=== PATIENT | female | born 1930 | race African-American/Black ===

== ENCOUNTER 2017-01-01 16:27 | Inpatient (IN) | payer MEDICARE, OTHER ==
--- NOTE | 2017-01-01 17:06 | EDPHY ---
H & P Time Seen by Provider: 01/01/17 16:53 HPI/ROS: CHIEF COMPLAINT: Fall times 2 HISTORY OF PRESENT ILLNESS: 86-year-old woman is brought in by her . He says that she was more unsteady today than usual and fell down at home at 9: 00 a.m.. Just before arrival she went into the grocery store and apparently EMS was called because she fell down again. The patient says she might have passed out but she really can't remember. Further history limited by the patient's poor memory, her is concerned she may be having some dementia. Further history and review of systems limited by the patient's poor memory. Per the no recent complaints of chest pain or shortness of breath. PAST MEDICAL HISTORY: COPD on home oxygen. Emergency department record from [facility] by Dr. Bernstein dated 12/25/2015 personally reviewed at 5: 19 p.m.. Includes hypertension, diverticulitis, hyperlipidemia, anxiety, chronic back pain, my kidney disease, osteoporosis, COPD, depression. She was seen at this visit for thoracic back pain and specifically had CT angiography of her chest and abdomen. This did not show any evidence of aortic dissection. Moderate emphysema. No intra-abdominal surgical process. Social history: Here with , denies alcohol. Ex smoker, Aguilar patient. General Appearance: Alert and conversant, cooperative. Eyes: No scleral icterus. ENT, Mouth: Normal mucous membranes. No tongue laceration or abrasion. Respiratory: Normal respiratory effort, breath sounds equal, lungs are clear to auscultation. Cardiovascular: Regular rate and rhythm. No murmur. Gastrointestinal: Abdomen is soft and non tender. Neurological: Alert, follows commands, knows it is 2016 and she is in the hospital but thinks it is November. Normally conversant. Face symmetric, normal movement and sensation in all extremities. Skin: Warm and dry, no rashes. Musculoskeletal: No peripheral edema and no joint swelling. No cervical thoracic or lumbar spine tenderness. Psychiatric: Not agitated. Emergency Department course/MDM: 1731: CT head per Isuani negative except for atrophy. 1800: Dr. Clint Aguilar ECM 1824: ECM discussed troponin 0.154, possible acute coronary syndrome, not stable for transfer, will admit to [facility]. Oral aspirin. Smoking Status: Former smoker Constitutional: Initial Vital Signs Temperature (C) 36.4 C 01/01/17 16:29 Heart Rate 78 01/01/17 16:29 Respiratory Rate 18 01/01/17 16:29 Blood Pressure 129/96 H 01/01/17 16:29 O2 Sat (%) 93 01/01/17 16:29 O2 Delivery Mode Nasal Cannula O2 (L/minute) 2 Allergies/Adverse Reactions: No Known Allergies Allergy (Unverified 01/01/17 16:36) Home Medications: Medication Instructions Recorded NK [No Known Home Meds] 01/01/17 Medical Decision Making - Diagnostics EKG Interpretation: 12-lead EKG interpreted by me; official reading is in trace master. My interpretation is sinus rhythm rate 68 with borderline right axis and LVH Imaging Results: Imaging Impressions Head CT 01/01/17 17:04 Impression: 1. Mild atrophy. 2. No acute hemorrhage, hydrocephalus, or mass effect. 3. Cerebrovascular atherosclerosis. 4. No definite acute infarct. 5. Moderate microvascular ischemic gliosis. 6. No skull fracture or epidural/subdural hematoma. Findings and recommendations discussed with Emergency Department physician, MALLORIE ROMERO at 17:30 hour, 01/01/2017. Final report concurs with initial preliminary interpretation. Differential Diagnosis: Differential diagnosis considered for syncope including but not limited to vasovagal syncope, arrhythmia, dehydration, and blood loss. Consult/Admit Bed Type: [place] [address] - Data Points Laboratory Results: Laboratory Results 01/01/17 17:00 01/01/17 17:00 01/01/17 01/01/17 17:00 17:00 WBC 11.03 10^3/uL H 10^3/uL (3.80-9.50) RBC 4.24 10^6/uL 10^6/uL (4.18-5.33) Hgb 15.3 g/dL g/dL (12.6-16.3) Hct 44.6 % % (38.0-47.0) MCV 105.2 fL H fL (81.5-99.8) MCH 36.1 pg H pg (27.9-34.1) MCHC 34.3 g/dL g/dL (32.4-36.7) RDW 12.8 % % (11.5-15.2) Plt Count 259 10^3/uL 10^3/uL (150-400) MPV 9.3 fL fL (8.7-11.7) Neut % (Auto) 68.4 % % (39.3-74.2) Lymph % (Auto) 21.9 % % (15.0-45.0) Rogers % (Auto) 5.4 % % (4.5-13.0) Eos % (Auto) 2.5 % % (0.6-7.6) Baso % (Auto) 0.5 % % (0.3-1.7) Nucleat RBC Rel Count 0.0 % % (0.0-0.2) Absolute Neuts (auto) 7.54 10^3/uL H 10^3/uL (1.70-6.50) Absolute Lymphs (auto) 2.42 10^3/uL 10^3/uL (1.00-3.00) Absolute Monos (auto) 0.60 10^3/uL 10^3/uL (0.30-0.80) Absolute Eos (auto) 0.28 10^3/uL 10^3/uL (0.03-0.40) Absolute Basos (auto) 0.05 10^3/uL 10^3/uL (0.02-0.10) Absolute Nucleated RBC 0.00 10^3/uL 10^3/uL (0-0.01) Immature Gran % 1.3 % H % (0.0-1.1) Immature Gran # 0.14 10^3/uL H 10^3/uL (0.00-0.10) Sodium 142 mEq/L mEq/L (134-144) Potassium 4.7 mEq/L mEq/L (3.5-5.2) Chloride 105 mEq/L mEq/L (97-110) Carbon Dioxide 27 mEq/l mEq/l (22-31) Anion Gap 10 mEq/L mEq/L (8-16) BUN 28 mg/dL H mg/dL (7-23) Creatinine 1.4 mg/dL H mg/dL (0.6-1.0) Estimated GFR 36 Glucose 94 mg/dL mg/dL (70-100) Calcium 12.2 mg/dL H mg/dL (8.5-10.4) Phosphorus 3.2 mg/dL mg/dL (2.5-4.5) Troponin I 0.154 ng/mL H ng/mL (0.000-0.034) Ethyl Alcohol < 10 mg/dL mg/dL (0-10) Medications Given: Discontinued Medications Aspirin (Aspirin) 324 mg PO EDNOW ONE Stop: 01/01/17 18:32 Last Admin: 01/01/17 18:51 Dose: 324 mg Departure - Departure Disposition: [facility] Inpatient Acute Clinical Impression: Troponin level elevated Syncope Qualifiers: Syncope type: unspecified Qualified Code(s): R55 - Syncope and collapse Condition: Good
[2017-01-01 17:12] LABS: % IMMATURE GRANULYOCYTES 1.3 % (0.0-1.1); ABSOLUTE IMMATURE GRANULOCYTES 0.14 10^3/uL (0.00-0.10); ADD DIFF? NO; ADD MORPH? NO; ADD SCAN? NO; ATYPICAL LYMPHOCYTE FLAG 10 (0-99); FRAGMENT RBC FLAG 0 (0-99); HEMATOCRIT 44.6 % (38.0-47.0); HEMOGLOBIN 15.3 g/dL (12.6-16.3); LEFT SHIFT FLG 10 (0-99); LIPEMIA HEMOLYSIS FLAG 90 (0-99); MEAN CELL HEMOGLOBIN 36.1 pg (27.9-34.1); MEAN CELL HEMOGLOBIN CONCENTR. 34.3 g/dL (32.4-36.7); MEAN CELL VOLUME 105.2 fL (81.5-99.8); MEAN PLATELET VOLUME 9.3 fL (8.7-11.7); PLATELET CLUMPS FLAG 0 (0-99); PLATELET COUNT 259 10^3/uL (150-400); RED BLOOD CELL COUNT 4.24 10^6/uL (4.18-5.33); RED CELL DISTRIBUTION WIDTH 12.8 % (11.5-15.2)
[2017-01-01 17:25] LABS: ANION GAP 10 mEq/L (8-16); CALCIUM 12.2 mg/dL (8.5-10.4); CARBON DIOXIDE 27 mEq/l (22-31); CHLORIDE 105 mEq/L (97-110); CREATININE 1.4 mg/dL (0.6-1.0); GLOMERULAR FILTRATION RATE 36; GLUCOSE 94 mg/dL (70-100); POTASSIUM 4.7 mEq/L (3.5-5.2); SODIUM 142 mEq/L (134-144)
--- NOTE | 2017-01-01 17:36 | CPEKG ---
Heart Rate: 68 RR Interval: 882 P-R Interval: 188 QRSD Interval: 86 QT Interval: 408 QTC Interval: 434 P Concord: 85 QRS Concord: 82 T Wave Concord: 74 EKG Severity - ABNORMAL ECG - EKG Impression: SINUS RHYTHM EKG Impression: BORDERLINE RIGHT AXIS DEVIATION EKG Impression: CONSIDER LEFT VENTRICULAR HYPERTROPHY Electronically Signed By: Donald Gonzalez 01-Jan-2017 17:36:52
[2017-01-01 17:40] LABS: ETHANOL SERUM < 10 mg/dL (0-10)
[2017-01-01 18:14] LABS: TROPONIN I 0.154 ng/mL (0.000-0.034)
[2017-01-01] MEDS ORDERED: ASPIRIN 81 MG CHEWABLE TAB PO ONE (18:31)
[2017-01-01] MEDS ORDERED: ONDANSETRON 4 MG/2 ML VIAL IVP PRN (19:24)
[2017-01-01] MEDS ORDERED: ONDANSETRON DISINTEGRATING 4 MG TAB PO PRN (19:24)
--- NOTE | 2017-01-01 19:28 | CPEKG ---
Heart Rate: 78 RR Interval: 769 P-R Interval: 192 QRSD Interval: 84 QT Interval: 388 QTC Interval: 442 P Needham: 71 QRS Needham: 65 T Wave Needham: 76 EKG Severity - BORDERLINE ECG - EKG Impression: SINUS RHYTHM EKG Impression: PROBABLE LEFT ATRIAL ABNORMALITY Electronically Signed By: Donald Gonzalez 01-Jan-2017 21:40:33
--- NOTE | 2017-01-01 20:55 | GHP ---
[f rep st] HISTORY AND PHYSICAL DATE OF ADMISSION: 01/01/2017 Patient is an 86-year-old female with a history of hypertension, vascular disease, who presents with syncope. When I speak with the patient she is somewhat confused and she tells me she just collapsed. It sounds like she had an episode of syncope this morning at 9 a.m. She then told her she marizol sethi to go to the grocery store. They discussed that for a moment. Ultimately they went. He was marizol aiting outside and suddenly an ambulance came because she collapsed in there. When I speak with the patient, she has been in the ER for a couple hours. She denies chest pain. Carole gonzalez says she collapsed. She denies palpitations. She has no history of bradyarrhythmia of which she i s aware. She has not been seen in this hospital in 7 years. I do have an ER discharge report from [facility] about a year ago that showed that she had an ulcerated plaque in the thoracic aorta, wa s on a number of medications including amlodipine, atenolol and losartan as well as a statin. The patient denies alcohol use. In discussion with Dr. Donald Gonzalez, our emergency department doctor, wiliam gonzalez said her expressed some concern that she had dementia. REVIEW OF SYSTEMS: Complete review of systems conducted and negative as noted in the HPI. PAST MEDICAL HISTORY: 1. Ulcerated thoracic aortic ulcer. 2. Atherosclerosis. 3. Hypertension. 4. Diverticulitis. 5. Hyperlipidemia. 6. Restless legs. 7. Chronic low back pain. 8. History of tobacco use. 9. Thyroid nodule, simple cyst. 10. Liver cyst. 11. Pulmonary nodule. 12. Gastric ulcer. 13. Constipation. 14. Hypertensive chronic kidney disease. GFR 30-60. 15. Primary hyperparathyroidism. 16. History of lithotripsy. 17. Osteoporosis. 18. COPD. 19. Spinal stenosis. 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 HOME MEDICATIONS: Here are listed as none but previously as of just 1 year ago, her medication list included Tylenol, amlodipine, atenolol, vitamin D3, vitamin B12, hydrocodone, losartan, nortriptyline , fish oil, omeprazole, pravastatin. ALLERGIES: Listed here aspirin and NSAIDs. SOCIAL HISTORY: Lives with her in [place]. Quit smoking she says in 2002. Last year was [employer] as a current smoker. Denies alcohol. FAMILY HISTORY: Parents . PHYSICAL EXAMINATION: VITAL SIGNS: Temp 36.4, blood pressure /96, pulse 78, breathing 18 times a minute, 92% on room air. GENERAL: No acute distress. HEENT: Sclerae anicteric. Oropharynx clear. Mucous membranes are moist. NECK: Supple without lymphadenopathy or JVD. LUNGS: Clear to auscultation bilaterally. HEART: S1, S2 without systolic murmurs. ABDOMEN: Soft, nontender, nondi stended. LOWER EXTREMITIES: Without edema. Calves nontender. SKIN: Without rash. NEUROLOGIC: E xam is nonfocal. LABORATORY DATA: Sodium 142, potassium 4.7, chloride 105, bicarb 27, BUN 28, creatinine 1.4. Her BU N and creatinine were normal or at least at 1.0 seven years ago here. There are no reported labs fro m her ER visit that I can find 1 year ago. Glucose 94, calcium 12.2, phos 3.2, troponin 0.154. Alco hol level is unremarkable. White count 11, hematocrit 44. Her MCV is elevated at 105. Platelets ar e 259. Noncontrast head CT shows moderate ischemic gliosis, no acute mass effect, hemorrhage or hydrocephalu s. No definite acute infarct. No skull fracture. EKG interpreted by me, shows sinus at 60 with normal axis and intervals. No ST or T-wave changes. T here is about a 0.25 mm or 0.[address] elevation seen in L but there is no ST elevation in 1 or V5-V6. I have repeated an EKG, and it is essentially unchanged. I have discussed the case Dr. Donald Gonzalez. ASSESSMENT AND PLAN: This is an 86-year-old female, who presents with syncope and confusion. Syncope. She gives a story of syncope without prodrome which is, of course, concerning. She is hypov olemic by labs I assume but she also has a positive troponin. I do not think this represents vasovag al and is not clearly hypovolemic. We will cycle her troponins and follow her on telemetry. She bonds s not have a systolic murmur. PLAN: 1. Echocardiogram. 2. Telemetry. 3. Cycle troponins. We will hold off on heparinization at this point in time, but I do have the rep eat troponin pending. She is currently not having chest pain and does not have ischemic EKG changes. 4. Elevated creatinine. I suspect she has acute kidney injury. I will give her a L of IV fluids and repeat in the morning. 5. Hypercalcemia. She has a diagnosis of hyperparathyroidism. I will check an ionized calcium and r epeat in the morning. Certainly the 12.2 was enough to cause some confusion and even some dehydratio n. Will follow. Will also send a PTH in the morning as well. 6. Confusion. Certainly the patient is at risk for dementia given age. Also concerning is her poss ible hypercalcemia. Additionally, she has a macrocytosis concerning for possible alcohol use that e is not endorsing and/or B12 and folate deficiency. I will send a B12 and folate and follow. Will get a collateral history from her when he is available. 7. Confusion. Certainly this patient seems marginal to be living on her own in her current state. Will sort of follow what the workup does. I have had PT and OT and speech for a evaluatio n see her. 8. Macrocytosis, B12 and folate evaluation. 9. Acute kidney injury. I suspect this is acute, will follow. 10. Leukocytosis, moderate, mild, will follow. DISPOSITION: Observation status. /[id number]/MODL
[2017-01-01] MEDS: NS 1,000 ML IV SCH (21:06)
[2017-01-01 22:16] LABS: TROPONIN I 0.158 ng/mL (0.000-0.034)
[2017-01-02 04:36] LABS: % IMMATURE GRANULYOCYTES 0.1 % (0.0-1.1); ABSOLUTE IMMATURE GRANULOCYTES 0.01 10^3/uL (0.00-0.10); ADD DIFF? NO; ADD MORPH? NO; ADD SCAN? NO; ATYPICAL LYMPHOCYTE FLAG 0 (0-99); FRAGMENT RBC FLAG 0 (0-99); HEMATOCRIT 42.3 % (38.0-47.0); HEMOGLOBIN 13.6 g/dL (12.6-16.3); LEFT SHIFT FLG 0 (0-99); LIPEMIA HEMOLYSIS FLAG 80 (0-99); MEAN CELL HEMOGLOBIN 33.9 pg (27.9-34.1); MEAN CELL HEMOGLOBIN CONCENTR. 32.2 g/dL (32.4-36.7); MEAN CELL VOLUME 105.5 fL (81.5-99.8); MEAN PLATELET VOLUME 9.4 fL (8.7-11.7); PLATELET CLUMPS FLAG 0 (0-99); PLATELET COUNT 243 10^3/uL (150-400); RED BLOOD CELL COUNT 4.01 10^6/uL (4.18-5.33)
[2017-01-02 05:02] LABS: ANION GAP 12 mEq/L (8-16); CALCIUM 11.2 mg/dL (8.5-10.4); CARBON DIOXIDE 26 mEq/l (22-31); CHLORIDE 105 mEq/L (97-110); CREATININE 1.3 mg/dL (0.6-1.0); GLOMERULAR FILTRATION RATE 39; GLUCOSE 78 mg/dL (70-100); POTASSIUM 4.3 mEq/L (3.5-5.2); SODIUM 143 mEq/L (134-144)
[2017-01-02 05:11] LABS: PTH INTACT NO MINERALS 237.7 pg/ml (10.8-79.4); TROPONIN I 0.105 ng/mL (0.000-0.034)
[2017-01-02] MEDS: NS 1,000 ML IV SCH (05:26)
--- NOTE | 2017-01-02 08:37 | ECHO ---
[email or web address] [address] [address] Main: [phone] Fax: [email or web address] Echocardiogram Name: HERMES LOUIE MR#: [id number] Study Date: 01/02/2017 Study Time: 07:10 AM Date of : 1930 Age: 86 year(s) Height: 160 cm (63 in.) Weight: 46.72 kg (103 lb.) BSA: 1.46 m2 Gender: Female Examination: Echo Indication: syncope/increased troponin/known vascular disease, history smoker Image Quality: Contrast: Requested by: Shaji Lujan BP: 144 mmHg/63 mmHg Heart Rate: Rhythm: Indication: syncope/increased troponin/known vascular disease, history smoker Procedure Staff [employer] Tool Driller: Michelle Martinez Reading Physician: Patricia Bryan Requesting Provider: Conclusions: Normal size left ventricle. Moderate concentric LV hypertrophy. Normal global systolic LV function. The ejection fraction is estimated to be 70-75 %. No regional wall motion abnormality. Grade 1 diastolic dysfunction (abnormal relaxation). Normal size right ventricle. Normal RV function. Mild mitral valve regurgitation is present. No aortic valve stenosis is present. Mild tricuspid regurgitation is present. The pulmonary artery pressure is severely increased. RVSP is 68-72mmHG.. There is no previous echocardiogram for comparison. Measurements: Chambers Valvular Assessment AV/MV Valvular Assessment TV/PV Normal Normal Normal Name Value Range Name Value Range Name Value Range Ao Nita (MM): 3.3 cm (2.2 cm-3.7 AV Vmax: 1.26 m/s (1 m/s-1.7 TR Vmax: 3.99 mm/s ( - ) cm) m/s) TR PGmax: 64 mmHg ( - ) IVSd (2D): 1.0 cm (0.6 cm-1.1 AV maxP mmHg ( - ) syst. PAP: 74 mmHg ( - ) cm) MV E Vmax: 0.60 m/s ( - ) LVDd (2D): 4.4 cm (3.9 cm-5.3 MV A Vmax: 0.98 m/s ( - ) cm) MV E/A: 0.61 ( - ) LVDs (2D): 2.6 cm (2.1 cm-4 cm) LVPWd (2D): 1.1 cm ( - ) LVEF (MOD4): 79 % (>=55 %) Patient: HERMES LOUIE Study Date: 01/02/2017 Page 1 of 2 07:10 AM EF Range: 70-75 % Continued Measurements: Chambers Valvular Assessment AV/MV Valvular Assessment TV/PV Name Value Name Value Name Value LADs: 3.6 cm MV DecTime: 327 m/s CVP (est.): 10 mmHg LADs Lon.8 cm MV E/E' Septal: 13.60 LA Area: 13.6 cm2 MV E/E' Lateral: 10.40 Findings: Left Ventricle: Normal size left ventricle. Moderate concentric LV hypertrophy. Normal global systolic LV function. The ejection fraction is estimated to be 70-75 %. No regional wall motion abnormality. Grade 1 diastolic dysfunction (abnormal relaxation). Right Ventricle: Normal size right ventricle. Normal RV function. Left Atrium: The left atrium is normal in size. 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 Right Atrium: The right atrium is normal in size. Mitral Valve: Mild mitral annular calcification. Mild mitral valve regurgitation is present. Aortic Valve: No aortic valve stenosis is present. Moderately calcified NCC of the aortic valve.. Tricuspid Valve: Mild tricuspid regurgitation is present. The pulmonary artery pressure is severely increased. RVSP is 68-72mmHG.. Pulmonic Valve: The pulmonic valve is normal in appearance and function. Aorta: The aorta is normal. Pericardium: No pericardial effusion. (No Signature Object) Patient: HERMES LOUIE Study Date: 01/02/2017 Page 2 of 2 07:10 AM [id number]
[2017-01-02] MEDS: ASPIRIN 81 MG CHEWABLE TAB PO SCH (08:48)
--- NOTE | 2017-01-02 10:41 | ASMTCMCOM ---
CM Note CM Note Notes: 01/02/2017 Case Management Note Met w/ pt. Pt signed HAYS form. Case management awaiting PT and OT and HOSPICE NURSE PRACTITIONER evals for recommendations for d/c. Case Mangement d/c poc: To be determined. Date Signed: 01/02/2017 10:41 AM Electronically Signed By:Little Lorenzana RN
--- NOTE | 2017-01-02 11:26 | HOSPPROG ---
Hospitalist Progress Note Assessment/Plan: First encounter Medically complex 86 yo female admitted with syncope while at the grocery store while pushing her cart. She recognized that she was going to faint but "could not do anything about it". Per report, there was +LOC. Upon further questioning she reports several similar falls in the last few week. However, she is a very poor historian and appears confused. Unclear what her cognitive baseline is. She denies any CP or SOB or palpiations or leg swelling. There have not been any events on Telemetry. An Echocardiogram is pending. HR has been in 60-90's. BP stable, slightly elevated She has known Hyperparathyroidism and was noted to have hypercalcemia She was also noted to have elevated Cr and likely acute kidney injury and started with IVF Calcium has improved slightly and Cr remains essentially the same. #Syncope, etiology unclear, suspicious for cardiac etiology -will consult Cards -Await TTE -No events noted on tele thus far #Encephalopathy, unclear chronicity #LORENA and dehydration #Hypercalcemia (11.2) and known Primary Hyperparathyroidism (PTH 237) #HTN #generalized weakness and deconditioning #Macrocytosis: normal B12 and Folate Plan: -Card consult -await TTE -It is unclear how much her calcium elevation is contributing to her weakness, encephalopathy, renal dysfunction, dehydration, and possibly HTN and syncope. She is a very poor historian and I will attempt to review other records and discuss with her family. She likely would benefit from a parathyroidectomy -She appears Euvolemic currently, will stop IVF -Check urine studies -Lovenox for DVT proph -Dispo: change to inpatient Subjective: very poor historian. No CP or SOB. No N/V. Objective: Vital Signs Temp Pulse Resp BP Pulse Ox 36.9 C 94 19 171/96 H 90 L 01/02/17 07:34 01/02/17 07:34 01/02/17 07:34 01/02/17 07:34 01/02/17 07:34 Laboratory Results 01/02/17 03:54 01/02/17 03:54 01/01/17 01/02/17 01/03/17 05:59 05:59 05:59 Intake Total 1100 Balance 1100 - Physical Exam Constitutional: not in pain, chronically ill appearing Eyes: PERRL, EOMI Ears, Nose, Mouth, Throat: moist mucous membranes, hearing normal Cardiovascular: regular rate and rhythym, No edema Respiratory: no respiratory distress, clear to auscultation Gastrointestinal: normoactive bowel sounds Genitourinary: no bladder fullness Skin: warm Musculoskeletal: full muscle strength Psychiatric: encephalopathic, poor insight, poor judgement, poor memory, No thought process linear ICD10 Worksheet Patient Problems: Problems Problem Status Onset Syncope Acute Troponin level elevated Acute
--- NOTE | 2017-01-02 12:09 | PDMN ---
Medical Necessity Medical necessity: C/M review: Patient meets INPT criteria under MCG Syncope and Systemic of infectious condition GRG (Hypercalcemia); Acute syncope of unclear etiology- suspiscious for cardiac etiology, troponins 0.154, 0.158, 0, 105, acute and persistent encephalopathy of unclear etiology, acute kidney injury, BUN 28, 26, Cr 1.4, 1.3, dehydration, not patient euvolemic, acute and persistent hypercalcemia Ca 12.2, 11.2, generalized weakness and deconditionibng requiring IV fluids, planned Cardiology consult, echocardiogram , ongoing cardiac monitoring, discontinue IV fluids, acute inpt PT/OT, comorbid hypertension, macrocytosis, known hyperparathyroidism, PTH 237. anticipates > 2 MN LOS for ongoing med nec for eval and TX of above. Patient is Medicare Advantage which follows guidelines CMS puts forth.
--- NOTE | 2017-01-02 12:33 | SOAPPROG ---
[facility] Progress Note Assessment/Plan: Assessment: Cardiology consultation performed and dictated. 86 y/o woman with dementia, HTN, moderate to severe pulmonary HTN admitted with syncope. Reportedly thoracic aortic ulcer on CT at [facility] a year ago. Pt is very poor history but denies pain anywhere in body. So far telemetry is unremarkable. REC: 1)start Amlodipine 5mg PO qday. 2)CTA heart and thoracic aorta today to evaluate for ulcerating thoracic aorta 3)Lexiscan cardiolite in AM 4)continue Tele Thanks. Will follow with you. 01/02/17 12:31 Objective: Vital Signs Temp Pulse Resp BP Pulse Ox 36.9 C 94 19 177/79 H 90 L 01/02/17 07:34 01/02/17 07:34 01/02/17 07:34 01/02/17 11:24 01/02/17 07:34 ICD10 Worksheet Patient Problems: Problems Problem Status Onset Syncope Acute Troponin level elevated Acute
[2017-01-02] MEDS ORDERED: IOPAMIDOL (ISOVUE 370) 100 ML BTL IV ONE (12:57)
--- NOTE | 2017-01-02 13:23 | GCON ---
[f rep st] CONSULTATION CARDIOLOGY CONSULT DATE OF CONSULTATION: 01/02/2017 REASON FOR CONSULTATION: Evaluate woman with syncope and reportedly loss of consciousness. HISTORY OF PRESENT ILLNESS: The patient is a very poor historian with probably dementia, unable to g boris a reliable history. From reviewing her records, she is an 86-year-old woman wit h a history of hypertension, chronic renal insufficiency, primary hyperparathyroidism, depression wit h psychosis, spinal stenosis, and possible CAT scan showing an ulcerated plaque in her thoracic aorta a year ago. She reportedly was at a grocery store with her when she lost consciousness. Cu rrently, she reports she has not had any pain in her body, but otherwise cannot really give much of a reliable history. She is alert, and oriented only to person. An echo done yesterday afternoon demo nstrates an LVEF of 73%, with moderate concentric left ventricular hypertrophy and diastolic dysfunct ion, with normal right ventricular function. She has mild mitral and tricuspid insufficiency, with a n estimated pulmonary artery systolic pressure of 70 mmHg, consistent with moderate to severe pulmona ry hypertension. PAST MEDICAL HISTORY: Hypertension, ulcerated plaque in her thoracic aorta, chronic renal insufficie ncy with a creatinine 1.3, previous gastric ulcers, hyperparathyroidism with elevated serum calcium, spinal stenosis, and depression with psychosis. PAST SURGICAL HISTORY: Unknown. CURRENT MEDICATIONS: Aspirin and Lovenox. Reportedly, she was on amlodipine, losartan, atenolol, an d pravastatin in the past. ALLERGIES: No known drug allergies. SOCIAL HISTORY: Reportedly she is and lives in [place] with her . She cannot tell me if she smokes or drinks. FAMILY HISTORY: Unknown secondary to poor historian. REVIEW OF SYSTEMS: Patient is unable to give an accurate review of systems, because of her dementia. PHYSICAL EXAM: VITAL SIGNS: Afebrile, pulse 90 and regular, blood pressure 177/79, respirations 20, 90% on room air. Weight 46.7 kg. GENERAL: A tangential, slightly confused woman, in no acute dist ress, without chest pain or using excess respiratory muscles. EYES: Pupils equal and reactive to li ght. ENT: Oral mucosa with no cyanosis. Jugular venous pressure to 6 cm. Carotid pulses 2+ bilate rally. No thyromegaly noted. LUNGS: Poor respiratory effort. No obvious wheezes or rales. HEART: Normal PMI. Regular rate and rhythm with 1/6 nonradiating systolic murmur. ABDOMINAL: Soft, nont qian. No guarding or rebound. EXTREMITIES: 2+ peripheral pulses, including femoral and pedal puls es. No edema noted. MUSCULOSKELETAL: No scoliosis. NEUROLOGIC: Alert, only to person. The patie nt does not know where she is at or the year. NECK: No nuchal rigidity. SKIN: No bleeding or cyan osis. EKG: Normal sinus rhythm with left atrial enlargement. No acute ST elevation or depression. LABS: White count 8.8, hematocrit 42, platelets 243,000, MCV 106. Sodium 143, potassium 4.3, chlori de 105, bicarb 26, BUN 26, creatinine 1.3, calcium 11.2. Troponin 0.16. NT-proBNP level 174. IMPRESSION: An 86-year-old woman with multiple medical problems including hypertension and moderate to severe pulmonary hypertension, and dementia. Clinically, I think her syncopal episode was seconda ry to hypovolemia. However, need to exclude underlying coronary artery disease and thoracic aortic a neurysm or ulcerating plaque. RECOMMENDATIONS: 1. Would start on amlodipine 5 mg per day. 2. Would do a CTA of the heart and thoracic aorta with IV contrast today, to make sure she has no th oracic aortic aneurysm or severe penetrating ulcer. 3. Would do a Lexiscan Cardiolite stress test in the morning. 4. Would continue on telemetry to make sure she has no tachy or justus arrhythmias. Thank you for allowing me to participate in the care of the patient. Cardiology will follow along wi th you during her hospitalization. /[id number]/MODL
[2017-01-02] MEDS: amLODIPine BESYLATE 5 MG TAB PO SCH (13:30)
[2017-01-02] MEDS: ENOXAPARIN 30 MG/0.3 ML SYR SC SCH (13:30)
[2017-01-03] MEDS: ACETAMINOPHEN 325 MG TAB PO PRN ×2 (08:38→17:01)
[2017-01-03] MEDS: amLODIPine BESYLATE 5 MG TAB PO SCH (08:39)
[2017-01-03] MEDS: ENOXAPARIN 30 MG/0.3 ML SYR SC SCH (08:39)
[2017-01-03] MEDS: ASPIRIN 81 MG CHEWABLE TAB PO SCH (08:39)
--- NOTE | 2017-01-03 09:00 | SOAPPROG ---
SOAP Progress Note Assessment/Plan: Assessment: 86 y/o woman with dementia, HTN, moderate to severe pulmonary HTN admitted with syncope. CTA chest shows small 7.5mm descending thoracic aortic ulcer but no aneuryseum. BP still not controlled. No arrhythmias on tele. PLAN: 1)increase Amlodipine to 10mg PO qam. 2)start Atorvastatin 20mg PO qam. 3)lexiscan cardiolite today. 4)If BP under tighter control and no ischemia on cardiolite, could go home from cardiology standpoint tomorrow. 01/03/17 08:57 Subjective: sore left hip but otherwise no complaints. Denies ARAGON, CP, ELKINS, palpitations or dizziness. Objective: Vital Signs Temp Pulse Resp BP Pulse Ox 36.7 C 81 16 175/108 H 99 01/03/17 07:43 01/03/17 07:43 01/03/17 07:43 01/03/17 07:43 01/03/17 07:43 01/02/17 01/03/17 01/04/17 05:59 05:59 05:59 Intake Total 490 Output Total 850 Balance -360 Physical Exam - Physical Exam General Appearance: no apparent distress EENT: normal ENT inspection Neck: full range of motion Respiratory: lungs clear (but poor respiratory effort.) Cardiac/Chest: regular rate, rhythm, systolic murmur, No gallop, No JVD Peripheral Pulses: 2+: carotid (R), carotid (L), femoral (R), femoral (L), dorsalis-pedis (R), dorsalis-pedis (L) Abdomen: non-tender, No guarding Skin: warm/dry Extremities: No pedal edema Neuro/Psych: No oriented x 3 ICD10 Worksheet Patient Problems: Problems Problem Status Onset Syncope Acute Troponin level elevated Acute
[2017-01-03] MEDS: ATORVASTATIN CALCIUM 20 MG TAB PO SCH (09:11)
[2017-01-03] MEDS ORDERED: REGADENOSON 0.4 MG/5 ML SYR IVP ONE (09:29)
--- NOTE | 2017-01-03 10:29 | HOSPPROG ---
Hospitalist Progress Note Assessment/Plan: Medically complex 86 yo female admitted with syncope while at the grocery store while pushing her cart. She recognized that she was going to faint but "could not do anything about it". Per report, there was +LOC. Upon further questioning she reports several similar falls in the last few week. However, she is a very poor historian and appears confused. Unclear what her cognitive baseline is. She denies any CP or SOB or palpiations or leg swelling. There have not been any events on Telemetry. An Echocardiogram is pending. HR has been in 60-90's. BP stable, slightly elevated. Cards is following. She is getting a nuclear stress test today. Etiology is possibly volume deficit vs other including cardiac disease. She has known Hyperparathyroidism and was noted to have hypercalcemia. It is unclear to what extent hypercalcemia is contributing to her symptoms including hypovolemia, renal injury, weakness, encephalopathy, and possibly Cardiac She was also noted to have elevated Cr and likely acute kidney injury and started with IVF with little improvement. Hydration status is clinically better. FENA is c/w 1.3, intrinsic TTE: Mod-Sever pulm HTN. Preserved LVEF. Diastolic dysfunction #Syncope, etiology unclear -will consult Cards -No events noted on tele thus far #Encephalopathy, unclear chronicity. ?Dementia #LORENA vs Chronic renal failure. No improvement on IVF. Intrinsic #Hypercalcemia (11.2) and known Primary Hyperparathyroidism (PTH 237). #HTN: Amlopine 10mg daily (increased today) #generalized weakness and deconditioning #Macrocytosis: normal B12 and Folate Plan: -Stress test today -Meeting with the pt's to discuss goals of care today -Pending discussion with her , she may benefit from a parathyroidectomy -Lovenox for DVT proph -Dispo: change to inpatient Subjective: Needing a sitter at bedside. Confused. Reports pain. No CP or SOB. Will have stress test today Objective: Vital Signs Temp Pulse Resp BP Pulse Ox 36.7 C 81 16 175/108 H 99 01/03/17 07:43 01/03/17 07:43 01/03/17 07:43 01/03/17 07:43 01/03/17 07:43 01/02/17 01/03/17 01/04/17 05:59 05:59 05:59 Intake Total 490 Output Total 850 350 Balance -360 -350 - Physical Exam Constitutional: chronically ill appearing Eyes: PERRL Ears, Nose, Mouth, Throat: moist mucous membranes, hearing normal Cardiovascular: regular rate and rhythym, No edema Respiratory: no respiratory distress, no rales or rhonchi, clear to auscultation Gastrointestinal: normoactive bowel sounds, soft, non-tender abdomen Skin: warm Neurologic: AAOx3 Psychiatric: poor insight, poor judgement, poor memory ICD10 Worksheet Patient Problems: Problems Problem Status Onset Syncope Acute Troponin level elevated Acute
--- NOTE | 2017-01-03 11:12 | GCON ---
[f rep st] CONSULTATION DATE OF CONSULTATION: 01/03/2017 REFERRING PHYSICIAN: Kasandra Lane MD The patient is seen at the request of Dr. Lane with the patient's permission. IMPRESSION: 1. 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 2. Multiple comorbidities. Please see admitting history and physical. RECOMMENDATIONS: This patient could be felt serially for progression of her penetrating aortic ulcer . At the present time, I can elicit no symptoms and have no prior studies for comparison. Apparentl y, the patient has ongoing cigarette abuse and dementia, and for that reason I would not offer interv ention as far as thoracic endograft. She could have serial observation with CAT scans, but again if her dementia is advanced, I see no indication that would warrant more aggressive intervention. Obvio usly, cessation of smoking would be helpful. I will convey this to the family when available. CHIEF COMPLAINT: An 86-year-old female with a history of hypertension and vascular disease, who pres ented with syncope. HISTORY OF PRESENT ILLNESS: She carries a history of some sort of atherosclerotic changes in her aor ta, and I was asked to comment about her penetrating aortic ulcer in the mid descending thoracic aort a. I reviewed a CT. There is an ulcerated plaque with classic penetrating aortic ulcer, without penetra tion of the adventitia, to my review. These tend to be of chronic nature and slow developing. In he althier subjects, we would consider thoracic endograft. However, given this patient's dementia and a dvanced age, it would be difficult to make this recommendation. PHYSICAL EXAMINATION: GENERAL: This is a slender female who is quite confused and quite anxious, repeatedly asking where she is, with a sitter at the bedside. HEART: Rate was regula r. LUNGS: Clear. ABDOMEN: Soft, nontender. Bowel sounds are active. EXTREMITIES: Pedal pulses were absent. No edema. No varicosities. IMAGING: CT scan was reviewed. /[id number]/MODL
--- NOTE | 2017-01-03 11:39 | ASMTCMCOM ---
CM Note CM Note Notes: 01/03/2017 Case Management Note Spoke w/ Kana on the phone. PT and OT recommending SNF rehab. Per Kana, pt has prior stay at [facility] in [place]. Faxed referral to [facility] and [facility] at Kana's request. Shreya is insurance and will limit where placement is possible. Kana indicated there is family in [place], [place] and [place] but no one local. Kana has help with lawn care and shoveling but otherwise pt and Kana have no other supports. Discussed placement in memory care unit with Kana. He stated they had looked at [facility] in the past but were unable to afford monthly fees. Discussed applying for Medicaid and submitting a ULTC 100 rd for group home placement in a SNF. [employer] to assess for Medicaid application on Wednesday. Case Management d/c poc: To SNF upon acceptance when medically stable. Case Management to follow. Date Signed: 01/03/2017 11:39 AM Electronically Signed By:Little Lorenzana RN
[2017-01-03] MEDS: traMADol 50 MG TAB PO PRN (12:48)
--- NOTE | 2017-01-03 14:45 | ASMTCMCOM ---
CM Note CM Note Notes: 01/03/2017 Case Management Note Met w/pt, Kana and MD. [facility] declined pt because the [facility] is not in network with [facility]. Kana agreed to need for Palliative meeting to discuss goals of care. Kana asked that daughter Roseanne be teleconferenced into palliative meeting. She can be reached at [phone]. Spoke w/Roseanne on the phone at Kana's request. Discussed need for memory care unit after SNF. Roseanne is concerned about parent's ability to safely care for themselves. Encouraged Roseanne to discuss with Kana the need for Medical POA and financial POA to be designated. Kana indicates that pt is in charge of bill paying for the household. Roseanne may fly out to [place] pending outcome of Palliative meeting. Brother Kaleb lives in [place]. Roseanne agreed to contact Kaleb and see if he wanted to participate in palliative meeting. Roseanne lives in [place] and requested that Palliative meeting happen after 2 pm her time (12 pm local time). Case Management to follow. Date Signed: 01/03/2017 02:45 PM Electronically Signed By:Little Lorenzana RN
--- NOTE | 2017-01-03 19:20 | NEUROPROG ---
Assessment: [id number] CC: Syncope, cognitive decline HPI: Pt seen on 01/03/17. Elderly female with PMHx of HTN, vascular disease, CKD, possible dementia presents with unexplained syncope x 2 and 3-4 months of cognitive decline. Pt is a poor historian and all information gained from review of medical record that was based on her husbands report. Pt very tired now and sleeping and not at bedside (will be back tomorrow morning). A few weeks prior to admission it was reported the patient passed out at [employer] while shopping but no workup was performed. Pt apparently did well until 01/01/17 when pt reported she just collapsed on the morning of 01/01/17 at 9 am and then again in a grocery store. This prompted EMS to be called and bring patient to the hospital. Pt awoke quickly and no seizure was seen. Cardiology is evaluating patient for cause of syncope but a cause is not currently known. Neurology was consulted to exclude a neurologic cause of syncope and to evaluate her cognitive decline. PMHx: ulcerated thoracic aortic plaque, HTN, diverticulitis, HLD, RLS, chronic lower back pain, thyroid nodule, pulm nodule, liver cyst, gastric ulcer, CKD, hyperparathyroidism, osteoporosis, COPD, spinal stenosis, depression w/psychosis SHx: tobacco use FHx: parents ROS: Pt denied acute fever, total vision loss, active severe chest pain, respiratory failure, total body severe rash, total bowel/bladder incontinence, psychosis, active seizures, or active bleeding O: VS reviewed General: asleep Eyes: Fundoscopic exam not able to visualize optic disks CV: difficult to assess due to patient sleeping Lungs: difficult to assess due to patient sleeping Neuro: - Mental: Pt too tired to participate in meaningful mental status testing - Cranial Nerves: . II: cant be full assessed as pt sleeping . III/IV/: cant be full assessed as pt sleeping . V: cant be full assessed as pt sleeping . VII: no facial asymmetry seen but pt sleeping so difficult to assess . VIII: cant be full assessed as pt sleeping . IX/X: cant be full assessed as pt sleeping . XI: cant be full assessed as pt sleeping . XII: cant be full assessed as pt sleeping - Motor: . Tone: cant be full assessed as pt sleeping . Strength: no clear asymmetry seen but cant be full assessed as pt sleeping - Reflexes: cant be full assessed as pt sleeping - Sensory: cant be full assessed as pt sleeping - Coord: cant be full assessed as pt sleeping - Gait: deferred Labs: 01/02/17- CBC unremarkable, Chem BUN 26H Cr 1.3H Ca 11.2H, B12 >1,000 Rads: 01/01/17- Head CT: mild atrophy, no acute changes, mod CMVD (I personally visualized the images on 01/03/17) 01/02/17- TTE: EF 70-75%, no thrombi, no cardioembolic source seen 01/02/17- 24 hour Tele: no afib Assessment: 1. Unexplained syncope x 2, 3-4 months of cognitive decline: Pt sleeping at this time and not at bedside (primary historian) so limited exam and history. Will evaluate for possible stroke as cause of recurrent syncope and cognitive decline as well as obtain additional labs. Concern for underlying dementia at this time as well. Plan: - Brain MRI w/o con - Carotid U/S - Labs: Lipid, H1AC, TSH, RPR - Get better exam tomorrow morning when pt more fully awake and obtain additional history from (plans to be here in the morning) - Neurology will follow closely Objective: Vital Signs Temp Pulse Resp BP Pulse Ox 36.6 C 82 20 136/95 H 93 01/03/17 17:00 01/03/17 17:00 01/03/17 17:00 01/03/17 17:00 01/03/17 17:00 01/02/17 01/03/17 01/04/17 05:59 05:59 05:59 Intake Total 824 1160 Output Total 294 725 Balance -360 435 Allergies/Adverse Reactions: No Known Allergies Allergy (Unverified 01/01/17 16:36)
[2017-01-04] MEDS: traMADol 50 MG TAB PO PRN (08:10)
[2017-01-04 08:11] LABS: ALANINE AMINOTRANSFERASE 34 IU/L (9-52); ALBUMIN 3.9 g/dL (3.5-5.0); ALKALINE PHOSPHATASE 69 IU/L (38-126); ANION GAP 9 mEq/L (8-16); ASPARTATE AMINOTRANSFERASE 27 IU/L (14-46); BILIRUBIN,TOTAL 0.5 mg/dL (0.1-1.4); CALCIUM 11.2 mg/dL (8.5-10.4); CARBON DIOXIDE 29 mEq/l (22-31); CHLORIDE 105 mEq/L (97-110); CHOLESTEROL 144 mg/dL (140-220); CHOLESTEROL/HDL RATIO 2.88 RATIO (1.00-4.44); CREATININE 1.1 mg/dL (0.6-1.0); GLOMERULAR FILTRATION RATE 47; GLUCOSE 92 mg/dL (70-100); HIGH DENSITY LIPOPROTEIN 50 mg/dL (40-85); LDL/HDL RATIO 1.38 RATIO (1.00-3.22); LOW DENSITY LIPOPROTEIN 69 mg/dL (80-100); NON-HIGH DENSITY LIPOPROTEIN 94 mg/dL (90-129); POTASSIUM 4.6 mEq/L (3.5-5.2); SODIUM 143 mEq/L (134-144); TOTAL PROTEIN 6.6 g/dL (6.3-8.2); TRIGLYCERIDE 129 mg/dL (35-135); VERY LOW DENSITY LIPOPROTEINS 25 mg/dL (8-25)
[2017-01-04 08:19] LABS: PREALBUMIN 22.8 mg/dL (17.6-36.0)
[2017-01-04] MEDS: ACETAMINOPHEN 325 MG TAB PO PRN (08:30)
[2017-01-04] MEDS ORDERED: NON-FORMULARY NEW DRUG (Albuterol 2 PUFFS) IH PRN (09:04)
[2017-01-04] MEDS ORDERED: CLOBETASOL PROPIONATE TP PRN ×2 (09:04→09:12)
[2017-01-04] MEDS ORDERED: NICOTINE POLACRILEX 4 MG BC PRN ×2 (09:04→09:13)
[2017-01-04] MEDS ORDERED: ALBUTEROL 200 PUFFS/18 GM MDI IH PRN (09:12)
[2017-01-04] MEDS ORDERED: LOSARTAN POTASSIUM 50 MG PO SCH (09:15)
[2017-01-04] MEDS: ASPIRIN 81 MG CHEWABLE TAB PO SCH (09:35)
[2017-01-04] MEDS: CYANO/VITAMIN B12 1000 MCG TAB PO SCH (09:35)
[2017-01-04] MEDS: ATORVASTATIN CALCIUM 20 MG TAB PO SCH (09:35)
[2017-01-04] MEDS: ENOXAPARIN 30 MG/0.3 ML SYR SC SCH (09:36)
[2017-01-04] MEDS: LOSARTAN POTASSIUM 50 MG TAB PO SCH (09:36)
[2017-01-04 09:42] LABS: HEMOGLOBIN A1C 5.3 % (4.0-6.0)
--- NOTE | 2017-01-04 09:42 | NEUROPROG ---
Assessment: MRI brain and Carotid U/S results not available yet. WIll see pt tomorrow am when results available. Dr. Banerjee will see patient. Objective: Vital Signs Temp Pulse Resp BP Pulse Ox 36.5 C 83 16 145/83 H 99 01/04/17 08:00 01/04/17 08:00 01/04/17 08:00 01/04/17 08:00 01/04/17 08:00 Laboratory Results 01/04/17 07:31 01/03/17 01/04/17 01/05/17 05:59 05:59 05:59 Intake Total 490 1460 Output Total 850 725 Balance -360 735 Allergies/Adverse Reactions: No Known Allergies Allergy (Unverified 01/01/17 16:36)
[2017-01-04 10:04] LABS: % IMMATURE GRANULYOCYTES 0.2 % (0.0-1.1); ABSOLUTE IMMATURE GRANULOCYTES 0.02 10^3/uL (0.00-0.10); ADD DIFF? NO; ADD MORPH? NO; ADD SCAN? NO; ATYPICAL LYMPHOCYTE FLAG 10 (0-99); FRAGMENT RBC FLAG 0 (0-99); HEMOGLOBIN 15.4 g/dL (12.6-16.3); LEFT SHIFT FLG 0 (0-99); LIPEMIA HEMOLYSIS FLAG 80 (0-99); MEAN CELL HEMOGLOBIN 35.4 pg (27.9-34.1); MEAN CELL HEMOGLOBIN CONCENTR. 33.5 g/dL (32.4-36.7); MEAN CELL VOLUME 105.7 fL (81.5-99.8); MEAN PLATELET VOLUME 9.6 fL (8.7-11.7); PLATELET CLUMPS FLAG 20 (0-99); PLATELET COUNT 285 10^3/uL (150-400); RED BLOOD CELL COUNT 4.35 10^6/uL (4.18-5.33); RED CELL DISTRIBUTION WIDTH 13.2 % (11.5-15.2)
--- NOTE | 2017-01-04 15:16 | ASMTCMCOM ---
CM Note CM Note Notes: See Palliative Care note for details. Palliative Care met with pt, , and son Darshan and daughter Roseanne were both on the phone (calling in from separate locations). Apparently, patient demanded that daughter have no decision making power and appointed son Darshan as MDPOA. Darshan requested that a list of [facility] SNF be sent to him, as well as information regarding what length of stay [facility] would pay for. I did send the SNF list to him @ [email or web address] but said that I was not able to answer questions about insurance coverage. I did not hear back from him. Patient has already been accepted at [facility] - I mentioned this in my email to Darshan, as well. Current Case Management Discharge plan: SNF pending family decision making Date Signed: 01/04/2017 03:15 PM Electronically Signed By:Karla Arriaga RN
[2017-01-04] MEDS: PSYLLIUM METAMUCIL 1 PKT PO SCH ×2 (16:34→21:45)
--- NOTE | 2017-01-04 17:32 | PDPCPN ---
Palliative Care Progress Note Assessment/Plan: Referring provider: Dr Aggarwal Reason for consult: Complex medical decision making Symptom control HPI: Sharmila Magaña (Lill) is a 86 yo with PMH HTN, vascular disease, and ulcerated plaque on her aorta admitted to the hospital for syncope. Work up negative so far for acute cause of syncope and decline. Per 3-4 months of cognitive decline has been ongoing with increasing behavior changes. Cardiology and neurology involved. Not surgical candidate for repair of aorta. Palliative care consulted for complex medical decision making. Met with Erica, her Kana, and their children via phone Roseanne and Kaleb this afternoon. Shared the medical update so far with no acute cause of syncope noted yet but still pending neurology final consult and work up. Per Kana Erica has had several MRI's over the past few months along with work up at [facility] for this syncope. He is not familiar with all of the reports of results as Erica would often go on her own without his knowledge. From what he understands this may or may not be reversible. He states there has been ongoing memory issues and cognitive issues over the past few months. He states Erica is not aware of her memory/cognition loss and has not been told about any possible dementia dx. Her family was very focused on finding the cause of her syncope before she is discharge to prevent this from happening again. Spent a long time in direct discussion about need for future planning with possibility of Erica never returning back to her baseline. Erica stated she has not felt like herself for a long time and wishes to be back to herself. She could not articulate what she meant by this. She feels both not herself emotionally as well as physically. She has a hx of being hospitalized in inpatient psych for 1 year to work on her emotional issues but "5 minutes after I got out i was back to where I was prior to when I went in". She has not felt any medications or counseling has ever worked. She was agreeable to going to rehab at discharge for strengthening. She did state she did not want to return back home but did not elaborate. We also discussed advanced directives and she would like her son to be MDPOA. We discussed code status but she has never thought about this and would need time to think about what her wishes are. Assessment: Physical: - Pain: lower back pain - tylenol PRN - tramadol PRN - can also use heat or ice - Syncope/Falls: - PT/OT - fall precautions - constipation - on psyllium husk Emotional/psychological: Hx of major depression with 1 year inpt psych stay in the past - not currently on medications- per pt it has never worked Advanced Care Planning: Is patient decisional?: Yes with help Code Status: Full MD POA: Kaleb is MDPOA. Plan: Rehab at discharge for increasing strength and needing increased supervision. senior living planning is ongoing with family depending on how Erica does at rehab, may need memory care vs LTC vs home with increased support. Subjective: why am I here Objective: Social History: to Kana. They have 2 children Kaleb who lives in [place] and Roseanne who lives in [place]. Medication list reviewed ROS: General: weakness, syncope ENT: negative Resp: negative GI: poor appetite : negative MS: negative Skin: negative Neuro: negative Psych: hx of depression, confusion Functional assessment: PPS:40% Functional status: needs assistance with ADLs Vital Signs Temp Pulse Resp BP Pulse Ox 36.7 C 81 16 138/80 H 94 01/04/17 16:00 01/04/17 16:00 01/04/17 16:00 01/04/17 16:00 01/04/17 16:00 Laboratory Results 01/04/17 07:31 01/04/17 07:31 01/03/17 01/04/17 01/05/17 05:59 05:59 05:59 Intake Total 490 1460 800 Output Total 850 725 500 Balance -360 735 300 Physical Exam - Physical Exam General Appearance: alert, no apparent distress Respiratory: No respiratory distress, No accessory muscle use Skin: normal color, warm/dry Extremities: No pedal edema Neuro/Psych: alert, disoriented to place, disoriented to time ICD10 Worksheet Patient Problems: Problems Problem Status Onset Palliative care encounter Acute Syncope Acute Troponin level elevated Acute - ICD10 Problem Qualifiers (1) Palliative care encounter
--- NOTE | 2017-01-04 18:15 | HOSPPROG ---
Hospitalist Progress Note Assessment/Plan: Assessment: 86 yo F p/w syncope in setting of suspected dementia Plan: # Syncope. Acute, etiology unclear, suspect it may be either 2/2 dehydration or a dementia-related non-specific event - CUS w/ moderate carotid stenosis, which could certainly exacerbate dehydration and result in syncope - 50-70% stenosis warrants outpt f/u but no immediate surgery, particularly in setting of dementia - appreciate Cards consult, no tele events noted - appreciate Neuro consult, MRI order discontinued today given that patient has had outpt PCP w/u which includes recent MRI per , ordering outside records at this time - get orthostatic VS # Aortic ulcer. Penetrating in descending thoracic, no indications for immediate surgery - recommend outpt f/u via [place], unlikely to be contributing to present presentation # Suspected Dementia. Concentration poor, attention sporadic, thought process tangential, has noted changes chronically and has had PCP evaluate - get outpt PCP records for verification - counseled patient/ that palliative conf today to help define best care following hospitalization, likely SNF then memory care # LORENA on likely CKD Stage III. Likely 2/2 hypovolemia w/ Cr 1.4 on presentation , downtrended to 1.1 w/ IVF - getting outpt clinic note to verify - monitor Cr # Hypercalcemia (11.2) and known Primary Hyperparathyroidism (PTH 237). Cont to monitor # HTN. Chronic, cont Amlodipine 10mg daily and monitor # Elevated troponin. Unclear relevance, no chest pain, may be elevated in setting of renal dysfunction - stress test held given baseline functional impairments and unlikely ability to benefit from any potential PCI intervention - cont ASA, statin Diet. Regular PPx. High risk, lovenox 40 Code. Full Dispo. ADD 01/05 to SNF if additional w/u negative, once facility selected by family. Subjective: patient w/ left hip pain, agitated Objective: Vital Signs Temp Pulse Resp BP Pulse Ox 36.7 C 81 16 138/80 H 94 01/04/17 16:00 01/04/17 16:00 01/04/17 16:00 01/04/17 16:00 01/04/17 16:00 Laboratory Results 01/04/17 07:31 01/04/17 07:31 01/03/17 01/04/17 01/05/17 05:59 05:59 05:59 Intake Total 490 1460 920 Output Total 850 725 500 Balance -360 762 420 - Time Spent With Patient Time Spent with Patient: greater than 35 minutes Time Spent with Patient: Greater than 35 minutes spent on this patients care, greater than 50% of time spent counseling, educating, and coordinating care regarding the above mentioned plan. - Physical Exam Constitutional: no apparent distress, appears nourished, uncomfortable, No not in pain (left hip) Cardiovascular: regular rate and rhythym, no murmur, rub, or gallop, No edema Respiratory: no respiratory distress, no rales or rhonchi, clear to auscultation Gastrointestinal: normoactive bowel sounds, soft, non-tender abdomen, no palpable masses, No distension Musculoskeletal: other (full ROM left hip w/o pain, no tenderness lateral troch bursa or inguinal area, no pain on eversion L hip) Neurologic: AAOx3, sensation intact bilaterally, No weakness (motor 5/5 LLE w/o straight leg raise) Psychiatric: encephalopathic, anxious, agitated, poor insight, other ( concentration 08/28) ICD10 Worksheet Patient Problems: Problems Problem Status Onset Palliative care encounter Acute Syncope Acute Troponin level elevated Acute
[2017-01-05] MEDS: traMADol 50 MG TAB PO PRN (01:34)
[2017-01-05] MEDS: ASPIRIN 81 MG CHEWABLE TAB PO SCH ×2 (08:12→10:01)
[2017-01-05] MEDS: LOSARTAN POTASSIUM 50 MG TAB PO SCH ×2 (08:13→10:02)
[2017-01-05] MEDS: CYANO/VITAMIN B12 1000 MCG TAB PO SCH ×2 (08:13→10:02)
[2017-01-05] MEDS: CHOLECALCIFEROL VIT D3 1,000 UNITS TAB PO SCH ×2 (08:13→10:01)
[2017-01-05] MEDS: ATORVASTATIN CALCIUM 20 MG TAB PO SCH ×2 (08:13→10:01)
[2017-01-05] MEDS: PSYLLIUM METAMUCIL 1 PKT PO SCH ×3 (08:22→22:41)
[2017-01-05 08:46] LABS: ANION GAP 12 mEq/L (8-16); CALCIUM 11.4 mg/dL (8.5-10.4); CARBON DIOXIDE 28 mEq/l (22-31); CHLORIDE 105 mEq/L (97-110); CREATININE 1.2 mg/dL (0.6-1.0); GLOMERULAR FILTRATION RATE 43; GLUCOSE 91 mg/dL (70-100); POTASSIUM 4.5 mEq/L (3.5-5.2); SODIUM 145 mEq/L (134-144)
[2017-01-05] MEDS: ENOXAPARIN 30 MG/0.3 ML SYR SC SCH (10:02)
--- NOTE | 2017-01-05 10:18 | NEUROPROG ---
Assessment: 15 mins in direct patient care activities on the floor. I have been asked by my colleague Dr. Licea to followup on Ms. Magaña's case. She has been experiencing syncopal events. There is also concern for cognitive decline. On entering the room, Ms. Magaña is in bed, attempting to exit. No family at bedside. She is very angry, and cursing at me. She states she's been here too long. I asked about her syncopal events and she states, "why do people keep saying that - I didn't pass out!" Despite attempts to calm her, she continued to be agitated and curse at me and demand I leave. She would not let me examine her. I reviewed her chart. Palliative care is now involved. If further workup for cognitive decline is desired, then recommend outpatient neuropsychology consultation for expert opinion on cognitive changes. If further investigation is needed for LOC/syncope from a neurologic perspective , then MRI brain wo and CTA head/neck is recommended to evaluate for vertebrobasilar insufficiency. If these tests were to return normal, then continue with cardiac workup. Will sign off. Please recall PRN. Objective: Vital Signs Temp Pulse Resp BP Pulse Ox 36.8 C 77 16 141/93 H 95 01/05/17 00:00 01/04/17 20:00 01/04/17 20:00 01/05/17 07:49 01/04/17 20:00 Laboratory Results 01/04/17 07:31 01/05/17 08:21 01/04/17 01/05/17 01/06/17 05:59 05:59 05:59 Intake Total 1460 1120 Output Total 729 500 Balance 190 844 Allergies/Adverse Reactions: No Known Allergies Allergy (Unverified 01/01/17 16:36)
[2017-01-05] MEDS: LIDOCAINE 5% 1 EA PATCH TD SCH (16:03)
[2017-01-05] MEDS: NICOTINE 21 MG/24 HR PATCH TD SCH (16:03)
--- NOTE | 2017-01-05 16:06 | HOSPPROG ---
Hospitalist Progress Note Assessment/Plan: Assessment: 86 yo F p/w syncope in setting of suspected dementia Plan: # Syncope. Acute, etiology unclear, suspect it may be either 2/2 dehydration or a dementia-related non-specific event - CUS w/ moderate carotid stenosis, which could certainly exacerbate dehydration and result in syncope - 50-70% stenosis warrants outpt f/u but no immediate surgery, particularly in setting of dementia - appreciate Cards consult, no tele events noted - appreciate Neuro consult, MRI order discontinued given that patient has had outpt PCP w/u which includes recent MRI per , ordering outside records at this time (none sent by [facility] today, will follow-up and retry) - get orthostatic VS - no events on tele - counseled patient and that inpt w/u is complete and PCP will continue eval, no immediately dangerous cause identified # Aortic ulcer. Penetrating in descending thoracic, no indications for immediate surgery - recommend outpt f/u via [employer], unlikely to be contributing to present presentation # Suspected Dementia. Concentration poor, attention sporadic, thought process tangential, has noted changes chronically and has had PCP evaluate - get outpt PCP records for verification - counseled patient/ that memory care unit is most appropriate option, case mgmt actively working w/ [facility] and patient to secure a safe discharge level of care - add NRT to alleviate any nicotine cravings which may be exacerbating # LORENA on likely CKD Stage III. Likely 2/2 hypovolemia w/ Cr 1.4 on presentation , downtrended to 1.2 w/ IVF - getting outpt clinic note to verify - monitor Cr # Hypercalcemia (11.2) and known Primary Hyperparathyroidism (PTH 237). Cont to monitor # HTN. Chronic, cont Amlodipine 10mg daily and monitor # Elevated troponin. Unclear relevance, no chest pain, may be elevated in setting of renal dysfunction - stress test held given baseline functional impairments and unlikely ability to benefit from any potential PCI intervention - cont ASA, statin # Hip pain. Acute, likely 2/2 underlying OA and immobility, physical exam demonstrating no limitations in ROM or tenderness - counseled that we will apply lidoderm patch, ice, tylenol PRN Diet. Regular PPx. High risk, lovenox 40 Code. Full Dispo. ADD 01/06 to SNF if additional w/u negative, once facility accepts. Subjective: patient reports she is unhappy being in hospital Objective: Vital Signs Temp Pulse Resp BP Pulse Ox 36.8 C 77 16 141/93 H 95 01/05/17 00:00 01/04/17 20:00 01/04/17 20:00 01/05/17 07:49 01/04/17 20:00 Laboratory Results 01/04/17 07:31 01/05/17 08:21 01/04/17 01/05/17 01/06/17 05:59 05:59 05:59 Intake Total 1460 1120 Output Total 725 500 Balance 005 701 - Time Spent With Patient Time Spent with Patient: greater than 35 minutes Time Spent with Patient: Greater than 35 minutes spent on this patients care, greater than 50% of time spent counseling, educating, and coordinating care regarding the above mentioned plan. - Physical Exam Constitutional: not in pain, No no apparent distress (moderately distressed today), No uncomfortable Cardiovascular: regular rate and rhythym, no murmur, rub, or gallop, No edema Respiratory: no respiratory distress, no rales or rhonchi, clear to auscultation Gastrointestinal: normoactive bowel sounds, soft, non-tender abdomen, no palpable masses Neurologic: No facial droop Psychiatric: anxious, agitated, poor insight, poor memory, other (scattered thought process, circular reasoning) ICD10 Worksheet Patient Problems: Problems Problem Status Onset Syncope Acute Troponin level elevated Acute Palliative care encounter Acute
--- NOTE | 2017-01-05 19:14 | ASMTCMCOM ---
CM Note CM Note Notes: 01/05/2017 Case Management Note Johanna contact info: [phone]. Mulitple conversations over the course of the day with Johanna, the [facility] rehabilitation coordinator at [facility], who instructed case management to send referrals to all [facility] facilities in the [facility] area for placement. All facilities reported declined pt and reported they had no [facility] beds available today. Notified Johanna and requested that pt be placed in [facility]. Johanna declined request because [facility] does not have a contract with [facility]. Johanna instructed case management that she will personally be in touch with [facility] facilities Wednesday and will have placement arranged hopefully by end of day tomorrow. Case Management notified charge account identification clerk. D/C was cancelled. Case Management to follow. Date Signed: 01/05/2017 07:14 PM Electronically Signed By:Little Lorenzana RN
[2017-01-05] MEDS: PATCH REMOVAL 1 EA PATCH TD SCH (22:40)
[2017-01-06] MEDS: ASPIRIN 81 MG CHEWABLE TAB PO SCH (08:18)
[2017-01-06] MEDS: LOSARTAN POTASSIUM 50 MG TAB PO SCH (08:19)
[2017-01-06] MEDS: ATORVASTATIN CALCIUM 20 MG TAB PO SCH (08:19)
[2017-01-06] MEDS: CHOLECALCIFEROL VIT D3 1,000 UNITS TAB PO SCH ×2 (08:25→10:23)
[2017-01-06] MEDS: ENOXAPARIN 30 MG/0.3 ML SYR SC SCH (08:25)
[2017-01-06] MEDS: CYANO/VITAMIN B12 1000 MCG TAB PO SCH ×2 (08:25→10:23)
[2017-01-06] MEDS: LIDOCAINE 5% 1 EA PATCH TD SCH (08:26)
[2017-01-06] MEDS: NICOTINE 21 MG/24 HR PATCH TD SCH ×2 (08:27→19:49)
[2017-01-06] MEDS: PSYLLIUM METAMUCIL 1 PKT PO SCH ×3 (08:49→19:50)
[2017-01-06] MEDS ORDERED: LOSARTAN POTASSIUM 50 MG TAB PO ONE (09:30)
[2017-01-06] MEDS ORDERED: GADOBUTROL 10 ML VIAL IVP ONE (13:51)
--- NOTE | 2017-01-06 15:18 | ASMTCMCOM ---
CM Note CM Note Notes: CM has been in communication w/ Rafael, the [facility] SNF coordinator. Rafael reports that she has been looking at all [facility] SNFs and either they don't have availability or they do not think pt is appropriate. Rafael reports that [facility] in [place] [facility] availability for Wednesday. She reports that Shrey[facility] cannot do a one time contract w/ a non [facility] facility. CM spoke w/ Kana, on the phone. The plan remains for pt to go to SNF instead of ad terminal makeup operator care. Kana would prefer to have pt at [facility]. CM spoke w/ Comfort at [facility] and she will be in again to evaluate. CM called [facility] and spoke to Haleigh at [facility] and she reports that they have met their cap with [facility] pts but they can request to go over their cap limit as an exception. CM to follow tomorrow. Date Signed: 01/06/2017 03:17 PM Electronically Signed By:LUIS ENRIQUE Middleton
--- NOTE | 2017-01-06 17:15 | HOSPPROG ---
Hospitalist Progress Note Assessment/Plan: Assessment: 86 yo F p/w syncope in setting of suspected dementia Plan: # Syncope. Acute, etiology unclear, suspect it may be either 2/2 dehydration or a dementia-related non-specific event - CUS w/ moderate carotid stenosis, which could certainly exacerbate dehydration and result in syncope - 50-70% stenosis warrants outpt f/u but no immediate surgery, particularly in setting of dementia - appreciate Cards consult, no tele events noted - MRI w/o CVA - no events on tele, negative orthostatics - counseled patient that cause is unidentified # Aortic ulcer. Penetrating in descending thoracic, no indications for immediate surgery - recommend outpt f/u via [facility], unlikely to be contributing to present presentation # Suspected Dementia. Concentration poor, attention sporadic, thought process tangential, has noted changes chronically - counseled patient that memory care unit is most appropriate option, case mgmt actively working w/ [facility] and patient to secure a safe discharge level of care - added NRT to alleviate any nicotine cravings which may be exacerbating # LORENA on likely CKD Stage III. Likely 2/2 hypovolemia w/ Cr 1.4 on presentation , downtrended to 1.2 w/ IVF - getting outpt clinic note to verify - monitor Cr # Hypercalcemia (11.2) and known Primary Hyperparathyroidism (PTH 237). Cont to monitor # HTN. Chronic, cont Amlodipine 10mg daily and monitor # Elevated troponin. Unclear relevance, no chest pain, may be elevated in setting of renal dysfunction - stress test held given baseline functional impairments and unlikely ability to benefit from any potential PCI intervention - cont ASA, statin # Hip pain. Acute, likely 2/2 underlying OA and immobility, physical exam demonstrating no limitations in ROM or tenderness - counseled that we will apply lidoderm patch, ice, tylenol PRN Diet. Regular PPx. High risk, lovenox 40 Code. Full Dispo. ADD 01/07 to SNF if [facility] is able to secure bed, currently unsafe to discharge to any other lower level of care Subjective: patient comfortable today, no hip pain, participating in conversation Objective: Vital Signs Temp Pulse Resp BP Pulse Ox 37.1 C 94 20 153/99 H 98 01/06/17 15:53 01/06/17 15:53 01/06/17 15:53 01/06/17 15:53 01/06/17 15:53 Laboratory Results 01/04/17 07:31 01/05/17 08:21 01/05/17 01/06/17 01/07/17 05:59 05:59 05:59 Intake Total 1120 50 500 Output Total 500 250 600 Balance 620 -200 -100 - Time Spent With Patient Time Spent with Patient: greater than 35 minutes Time Spent with Patient: Greater than 35 minutes spent on this patients care, greater than 50% of time spent counseling, educating, and coordinating care regarding the above mentioned plan. - Pending Discharge Pending Discharge Within 24 Hours: Yes Pending Discharge Date: 01/07/17 Pending Discharge Time: 11:00 - Physical Exam Constitutional: no apparent distress, not in pain, No uncomfortable Cardiovascular: regular rate and rhythym, no murmur, rub, or gallop Respiratory: no respiratory distress, no rales or rhonchi, clear to auscultation Gastrointestinal: normoactive bowel sounds, soft, non-tender abdomen, no palpable masses Neurologic: No facial droop Psychiatric: poor insight, poor judgement, poor memory, other (patient disoriented, speech is scattered), No thought process linear, No anxious, No agitated ICD10 Worksheet Patient Problems: Problems Problem Status Onset Syncope Acute Troponin level elevated Acute Palliative care encounter Acute
[2017-01-06] MEDS: traMADol 50 MG TAB PO PRN (18:09)
[2017-01-06] MEDS: PATCH REMOVAL 1 EA PATCH TD SCH (19:49)
[2017-01-07] MEDS ORDERED: LOSARTAN POTASSIUM 50 MG TAB PO SCH (09:00)
[2017-01-07] MEDS: PSYLLIUM METAMUCIL 1 PKT PO SCH ×3 (10:34→21:31)
[2017-01-07] MEDS: ENOXAPARIN 30 MG/0.3 ML SYR SC SCH (10:35)
[2017-01-07] MEDS: LIDOCAINE 5% 1 EA PATCH TD SCH (10:35)
[2017-01-07] MEDS: ASPIRIN 81 MG CHEWABLE TAB PO SCH (10:36)
[2017-01-07] MEDS: LOSARTAN POTASSIUM 50 MG TAB PO SCH (10:36)
[2017-01-07] MEDS: CHOLECALCIFEROL VIT D3 1,000 UNITS TAB PO SCH (10:36)
[2017-01-07] MEDS: ATORVASTATIN CALCIUM 20 MG TAB PO SCH (10:37)
[2017-01-07] MEDS: CYANO/VITAMIN B12 1000 MCG TAB PO SCH (10:37)
[2017-01-07] MEDS: NICOTINE 21 MG/24 HR PATCH TD SCH (10:37)
[2017-01-07 11:48] VITALS: TEMP 98.1
--- NOTE | 2017-01-07 13:36 | HOSPPROG ---
Hospitalist Progress Note Assessment/Plan: Assessment: 86 yo F p/w syncope in setting of suspected dementia Plan: # Syncope. Acute, etiology unclear, suspect it may be either 2/2 dehydration or a dementia-related non-specific event - CUS w/ moderate carotid stenosis, which could certainly exacerbate dehydration and result in syncope - 50-70% stenosis could warrant outpt f/u in setting of dementia, likely no surgical intervention indicated - appreciate Cards consult, no tele events noted - MRI w/o CVA - no events on tele, negative orthostatics - counseled patient that cause is unidentified # Aortic ulcer. Penetrating in descending thoracic, no indications for immediate surgery - recommend outpt f/u via [facility], unlikely to be contributing to present presentation # Suspected Dementia. Concentration poor, attention sporadic, thought process tangential, has noted changes chronically - counseled patient that memory care unit is most appropriate option, case mgmt actively working w/ [facility] and patient to secure a safe discharge level of care - added NRT to alleviate any nicotine cravings which may be exacerbating - behavior and level of participation and agitation fluctuate widely, but patient is redirectible and has not been violent - patient demonstrates no capacity to process medical information or make complex decisions # LORENA on likely CKD Stage III. Likely 2/2 hypovolemia w/ Cr 1.4 on presentation , downtrended to 1.2 w/ IVF - recommend outpt monitoring # Hypercalcemia (11.2) and known Primary Hyperparathyroidism (PTH 237). Outpatient monitoring # HTN. Chronic, cont Amlodipine 10mg and losartan 50mg (fluctuations have been mostly 2/2 non-adherence, refusing Rx) # Elevated troponin. Unclear relevance, no chest pain, may be elevated in setting of renal dysfunction - stress test held given baseline functional impairments and unlikely ability to benefit from any potential PCI intervention - cont ASA, statin # Hip pain. Acute, likely 2/2 underlying OA and immobility, physical exam demonstrating no limitations in ROM or tenderness - counseled that we will apply lidoderm patch, ice, tylenol PRN Diet. Regular PPx. High risk, lovenox 40 Code. Full, son is MDPOA Dispo. ADD 01/08 to SNF if [facility] is able to secure bed, currently unsafe to discharge to any other lower level of care a Subjective: patient concerned about possible legal issues, perseverating, unaware of her current situation Objective: Vital Signs Temp Pulse Resp BP Pulse Ox 36.7 C 115 H 15 157/95 H 92 01/07/17 11:40 01/07/17 11:40 01/07/17 11:40 01/07/17 11:40 01/07/17 11:40 Laboratory Results 01/04/17 07:31 01/05/17 08:21 01/06/17 01/07/17 01/08/17 05:59 05:59 05:59 Intake Total 50 800 Output Total 250 1200 Balance -200 -400 - Physical Exam Constitutional: appears nourished, not in pain, No no apparent distress (mild distress), No uncomfortable Cardiovascular: regular rate and rhythym, no murmur, rub, or gallop, No edema Respiratory: no respiratory distress, no rales or rhonchi, clear to auscultation Gastrointestinal: normoactive bowel sounds, soft, non-tender abdomen, no palpable masses Neurologic: other (AAOx2 (person only)), No facial droop Psychiatric: encephalopathic, anxious, agitated, poor insight, poor judgement, poor memory, other (scattered thought process, perseverating on legal issues) ICD10 Worksheet Patient Problems: Problems Problem Status Onset Syncope Acute Troponin level elevated Acute Palliative care encounter Acute
[2017-01-08] MEDS: PATCH REMOVAL 1 EA PATCH TD SCH (00:04)
[2017-01-08] MEDS: NICOTINE 21 MG/24 HR PATCH TD SCH (11:58)
[2017-01-08] MEDS: LIDOCAINE 5% 1 EA PATCH TD SCH (11:59)
[2017-01-08] MEDS: CHOLECALCIFEROL VIT D3 1,000 UNITS TAB PO SCH (12:01)
[2017-01-08] MEDS: ENOXAPARIN 30 MG/0.3 ML SYR SC SCH (12:01)
[2017-01-08] MEDS: LOSARTAN POTASSIUM 50 MG TAB PO SCH (12:01)
[2017-01-08] MEDS: ATORVASTATIN CALCIUM 20 MG TAB PO SCH (12:02)
[2017-01-08] MEDS: CYANO/VITAMIN B12 1000 MCG TAB PO SCH (12:02)
[2017-01-08] MEDS: PSYLLIUM METAMUCIL 1 PKT PO SCH ×2 (12:02→17:04)
[2017-01-08] MEDS: ASPIRIN 81 MG CHEWABLE TAB PO SCH (12:02)
--- NOTE | 2017-01-08 14:18 | HOSPPROG ---
Hospitalist Progress Note Assessment/Plan: 86F with reported dementia admitted for syncope with significant w/u, many findings, unclear if any explain her syncope. Quite tangential and almost agitated when I see her. There are many reports of her being confused in the hospital. # syncope - many potential causes though nothing clear # R ICA stenosis 50-70% - outpatient f/u # pulm htn - RVSP ~70mmHg - certainly could predispose to syncope - d/t chronic hypoxia most likely # penetrating aortic ulcer - outpatient follow up - statin # mental status - difficult for me to understand; certainly some cognitive decline recently; also has reported hx of inpatient psych admission - this is complicating her medical care overall - she does not seem to understand her medical care at this time # primary hyperCa # indet troponin - no stress given underlying mental status per report; - asa/statin # CKD - likely at baseline # htn - elevated; she is on amlodipine and losartan Subjective: very tangential and difficult to follow; seems frustrated overall; Objective: Vital Signs Temp Pulse Resp BP Pulse Ox 36.7 C 93 20 169/109 H 90 L 01/08/17 07:19 01/08/17 07:19 01/08/17 07:19 01/08/17 07:19 01/08/17 07:19 Laboratory Results 01/04/17 07:31 01/05/17 08:21 01/07/17 01/08/17 01/09/17 05:59 05:59 05:59 Intake Total 800 840 400 Output Total 1200 800 400 Balance -400 40 0 - Time Spent With Patient Time Spent with Patient: greater than 35 minutes Time Spent with Patient: Greater than 35 minutes spent on this patients care, greater than 50% of time spent counseling, educating, and coordinating care regarding the above mentioned plan. - Physical Exam Constitutional: no apparent distress, appears nourished, other (slightly agitated) ICD10 Worksheet Patient Problems: Problems Problem Status Onset Palliative care encounter Acute Syncope Acute Troponin level elevated Acute
--- NOTE | 2017-01-08 15:41 | PDIAF ---
- Diagnosis Code Status: Full Code - Medication Management Discharge Medications: Medications to Continue on Transfer Albuterol [Ventolin Hfa Inhaler] 2 puffs IH Q3 PRN 01/03/17 [Last Taken Unknown] Cholecalciferol Vit D3 [Vitamin D3 (*)] 2,000 units PO DAILY 01/03/17 [Last Taken Unknown] Clobetasol Propionate [Clobex] 1 rd TP BID PRN 01/03/17 [Last Taken Unknown] Cyanocobalamin [Vitamin B12 (*)] 1,000 mcg PO DAILY 01/03/17 [Last Taken Unknown ] Losartan Potassium [Cozaar] 100 mg PO DAILY 01/03/17 [Last Taken Unknown] Nicotine Polacrilex [Nicorette] 4 mg BC PRN PRN 01/03/17 [Last Taken Unknown] Psyllium Husk (with Sugar) [Metamucil Packet] 1 each PO TID 01/03/17 [Last Taken Unknown] amLODIPine BESYLATE [Norvasc 10 mg (*)] 10 mg PO DAILY 01/03/17 [Last Taken Unknown] traMADol [Ultram 50 mg (*)] 25 mg PO BID PRN 01/03/17 [Last Taken Unknown] Acetaminophen [Tylenol 325mg (*)] 650 mg PO Q4HRS PRN tab 01/08/17 [Last Taken Unknown] Aspirin [Aspirin 81mg (*)] 81 mg PO DAILY #30 tab.chew 01/08/17 [Last Taken Unknown] Atorvastatin Calcium [Lipitor 20 mg (*)] 20 mg PO DAILY #30 tab 01/08/17 [Last Taken Unknown] Lidocaine 5% [Lidoderm 5% Patch (*)] 1 ea TD DAILY #30 patch 01/08/17 [Last Taken Unknown] Ondansetron Odt [Zofran Odt 4 mg (*)] 4 mg PO Q4HRS PRN #30 tab 01/08/17 [Last Taken Unknown] Patch Removal 1 ea TD DAILY21 #30 patch 01/08/17 [Last Taken Unknown] Discharge Medications: Refer to the Discharge Home Medication list for PRN reason. - Orders Services needed: Registered Nurse, Certified Fishing Vessel Mate, Physical Therapy, Occupational Therapy - Follow Up Care Current Providers and Referrals: NONE *PRIMARY CARE P,. [Primary Care Provider] - As per Instructions
--- NOTE | 2017-01-08 15:49 | PDDCSUM ---
Discharge Summary Discharge Summary: Dates of service: 01/01-01/08/17 Consultations: cardiology, neurology Procedures performed: echo, chest CTA, carotid US, brain MRI Hospital course by problem: # syncope - many potential causes though nothing clear, no recurrence # R ICA stenosis 50-70% - outpatient f/u # pulm htn - RVSP ~70mmHg - certainly could predispose to syncope - d/t chronic hypoxia most likely # penetrating aortic ulcer - outpatient follow up - statin # mental status - difficult for me to understand; certainly some cognitive decline recently; also has reported hx of inpatient psych admission - this is complicating her medical care overall - she does not seem to understand her medical care at this time -plan is for discharge to [facility] for ongoing assistance # primary hyperCa--stable and mild # indet troponin - no stress given underlying mental status per report; - asa/statin # CKD - likely at baseline # htn - elevated; she is on amlodipine and losartan dc to snf Fu with PCP > 35 min spent in dc of patient more than half in coordination of care
[2017-01-08 15:51] VITALS: BP 155/87; PULSE 100; RESP 22; O2SAT 93
--- NOTE | 2017-01-08 15:59 | ASMTCMCOM ---
CM Note CM Note Notes: CM note from 01/07 CM had several conversations w/ ps daughter, Roseanne on the phone. GIA provided Roseanne w/ Rafael's phone number, the [facility] representative phlebotomy services. Roseanne had concerns of dispo plan to [facility] in fears that it would be too far for pts , Kana. Rafael informed GIA and Roseanne that there are no other options other than [facility]. CM called [facility] and they will most likely not have any beds until next week. Roseanne asked if it would be a possible for pt could go home. GIA informed pts and daughter that another option could be 24hr supervision with home care. Daughter ideally would like pt to go to [facility] GIA Note from 01/07/17 Pt has been accepted to [facility]. CM spoke w/ Russel, the [facility] coordinator and she is approving for pt to go to [facility]. CM sent up transportation through [employer]. Pts son will be covering the cost for the wheelchair transport. CM sent d/c orders to [facility]. CM provided Yamilex, RN w/ phone number to give report. CM available for changes. Date Signed: 01/08/2017 03:59 PM Electronically Signed By:LUIS ENRIQUE Middleton
== END 2017-01-08 17:54 | DRG 312 ==
LOC: INTOOBSV 18:29 → F2W 20:28 → OBSVTOIN 01-02 11:36
PROVIDERS: ADMIT Internal Medicine; ATTEND Internal Medicine
DX: R55 Syncope and collapse (principal); I65.21 Occlusion and stenosis of right carotid artery; I27.21 Secondary pulmonary arterial hypertension; I71.2 Thoracic aortic aneurysm, without rupture; R41.89 Other symptoms and signs involving cognitive functions and awareness; E86.0 Dehydration; N17.9 Acute kidney failure, unspecified; R78.89 Finding of other specified substances, not normally found in blood; E21.0 Primary hyperparathyroidism; E83.52 Hypercalcemia; N18.3 Chronic kidney disease, stage 3 (moderate); I12.9 Hypertensive chronic kidney disease with stage 1 through stage 4 chronic kidney disease, or unspecified chronic kidney disease; J43.9 Emphysema, unspecified; Z87.890 Personal history of sex reassignment
CPT/HCPCS: 82607-90; 84134-90; 92507-GN; 92523-GN; 97116-GP; 97161-GP; 97165-GO; 97530-GO; 97535-GO; A9585; G0480; J1650; J2785; Q9967

== ENCOUNTER 2017-07-20 16:47 | Inpatient (IN) | payer OTHER ==
--- NOTE | 2017-07-20 16:55 | EDPHY ---
HPI/HX/ROS/PE/MDM Narrative: CHIEF COMPLAINT: Head injury HPI: This patient is an 87 year old female with extensive medical history including dementia, hypertension, and vascular disease arriving via EMS after striking her head during a mechanical fall. She walked into her tile kitchen this afternoon and slipped on water on the floor. She usually walks with a walker, but EMS crews did not see a walker present. The patient sustained a laceration to her head from an unknown surface. Per EMS report, there was 100-200cc blood on the floor of the kitchen. The patient denies any loss of consciousness. Vitals were stable in transport. BP 200/120. BGL 129. The patient denies neck or back pain. Cervical collar placed by EMS. Further history difficult to obtain due to patient's dementia. REVIEW OF SYSTEMS: Difficult to obtain due to patient's dementia. PMH: Dementia. Ulcerated thoracic aortic ulcer. Atherosclerosis. Hypertension. Hyperlipidemia. Hyperparathyroidism. Chronic kidney disease. Diverticulitis. Chronic back pain. Pulmonary nodule. Gastric ulcer. Osteoporosis. COPD. Spinal stenosis. History of depression. SOCIAL HISTORY: . Lives in [place]. Retired. PHYSICAL EXAM: General:Patient is alert, in no acute distress. Head: Large hematoma to right occiput. 3cm laceration to right parietal scalp. ENT:Eyes are normal to inspection. ENT inspection normal. Neck: Normal inspection. Full range of motion. Respiratory:No respiratory distress. Breath sounds normal bilaterally. Cardiovascular: Regular rate and rhythm. Strong peripheral pulses. Normal cap refill. Abdomen:The abdomen is nontender to palpation. There are no peritoneal signs. There are normal bowel sounds. Back: Normal to inspection. No tenderness to palpation. Skin: Normal color. No rash. Warm and dry. Extremities: Normal appearance. Full range of motion. Neuro: Hard of hearing. Appears confused. Normal motor function. Normal sensory function. ED Course: 87 y/o female presents following a mechanical fall and head injury. Large hematoma to right occiput and 1cm laceration to right parietal scalp noted on exam. Plan for CT head and cervical spine. Plan for labs including CBC, chemistries, troponin, coag panel. 17:44 CT c-spine negative for acute processes. CT head shows equivocal small right frontal hemorrhage vs. artifact. 17:50 On re-evaluation, the patient is laying in bed with c-collar around her face and in mouth. As CT is negative for c-spine fracture, I removed the collar as this is clearly causing serious potential for harm in this patient. Scalp laceration cleaned under standard ED protocol. BP remains elevated at 211/ 127. Troponin negative. 18:[address] Winters, neurosurgeon. He will review the patient's CT. 18:[address] Winters. He does not note any hemorrhage on CT. Plan to proceed with antihypertensive treatment and administer 10mgmg IV labetalol. Dr. Winters concurs with this plan. 18:50 Procedure: Laceration repair. Verbal consent was obtained from the patient. The linear 3cm laceration on the right parietal scalp was anesthetized using lidocaine and epinephrine. The wound was cleaned with standard ED protocol. The wound was repaired in single layer technique with four 4-0 Prolene sutures. The wound repair was simple. The procedure was performed by myself, Dr. Whitaker. Plan for suture removal in seven days (07/27/17). Plan to admit patient for head injury given her dementia. BP now 132/111. 19:27 Spoke with hospitalist service. Dr. Malagon accepts admission. MDM: This patient presents with fall and head injury. Etiology is unknown and history is essentially non-existent from patient due to dementia, and cannot provide much more. She has an equivocal bleed on CT and numerous medical problems that could have contributed to her fall - she requires admission for further workup and close observation. I do not believe she is safe to return home. - Data Points Imaging Results: Imaging Impressions Cervical Spine CT 07/20/17 16:54 Impression: 1. Equivocal small right frontal cortical gyral hemorrhage versus artifact. 2. Right parietal scalp laceration. 2. CT Cervical Spine Without Contrast, 17:11 History: Trauma. Technique: Multislice helical CT through the cervical spine without contrast from the skull base to T1. Soft tissue and bone evaluation is performed. Sagittal and coronal reconstructions are obtained and reviewed. Dose reduction techniques were utilized. Findings: Cervical alignment is anatomic. No fracture or dislocation is identified. The relationship between skull base and C1 is normal. The C1-C2 articulation is normally aligned. The odontoid process is intact. There is chronic degenerative disk disease between C3 and C7.. Facet joints are normally aligned, but osteoarthritic in the right at C4-C5 and on the left between C2 and C6.. The cervical thoracic junction is normally aligned. Soft tissue window evaluation does not show evidence of epidural or prevertebral hematoma. There is bilateral internal carotid atherosclerotic vascular calcification. Impression: No acute posttraumatic cervical abnormality identified. Results called to Dr. Whitaker at 5:44 PM Final results are concordant with the initial interpretation. General information for patients regarding this examination can be found at [employer]. If you have questions or comments about this report, please contact me at (hospital) or [phone] (cell). Head CT 07/20/17 16:54 Impression: 1. Equivocal small right frontal cortical gyral hemorrhage versus artifact. 2. Right parietal scalp laceration. 2. CT Cervical Spine Without Contrast, 17:11 History: Trauma. Technique: Multislice helical CT through the cervical spine without contrast from the skull base to T1. Soft tissue and bone evaluation is performed. Sagittal and coronal reconstructions are obtained and reviewed. Dose reduction techniques were utilized. Findings: Cervical alignment is anatomic. No fracture or dislocation is identified. The relationship between skull base and C1 is normal. The C1-C2 articulation is normally aligned. The odontoid process is intact. There is chronic degenerative disk disease between C3 and C7.. Facet joints are normally aligned, but osteoarthritic in the right at C4-C5 and on the left between C2 and C6.. The cervical thoracic junction is normally aligned. Soft tissue window evaluation does not show evidence of epidural or prevertebral hematoma. There is bilateral internal carotid atherosclerotic vascular calcification. Impression: No acute posttraumatic cervical abnormality identified. Results called to Dr. Whitaker at 5:44 PM Final results are concordant with the initial interpretation. General information for patients regarding this examination can be found at [employer]. If you have questions or comments about this report, please contact me at [phone]([facility]) or [phone] (cell). Imaging: Discussed imaging studies w/ forming fixer Radiologist Laboratory Results: Laboratory Results 07/20/17 17:12 07/20/17 17:12 07/20/17 07/20/17 07/20/17 17:12 17:12 17:12 WBC 8.88 10^3/uL 10^3/uL (3.80-9.50) RBC 4.35 10^6/uL 10^6/uL (4.18-5.33) Hgb 15.1 g/dL g/dL (12.6-16.3) Hct 45.7 % % (38.0-47.0) MCV 105.1 fL H fL (81.5-99.8) MCH 34.7 pg H pg (27.9-34.1) MCHC 33.0 g/dL g/dL (32.4-36.7) RDW 12.8 % % (11.5-15.2) Plt Count 271 10^3/uL 10^3/uL (150-400) MPV 9.8 fL fL (8.7-11.7) Neut % (Auto) 51.3 % % (39.3-74.2) Lymph % (Auto) 36.6 % % (15.0-45.0) [place] % (Auto) 7.2 % % (4.5-13.0) Eos % (Auto) 4.3 % % (0.6-7.6) Baso % (Auto) 0.3 % % (0.3-1.7) Nucleat RBC Rel Count 0.0 % % (0.0-0.2) Absolute Neuts (auto) 4.55 10^3/uL 10^3/uL (1.70-6.50) Absolute Lymphs (auto) 3.25 10^3/uL H 10^3/uL (1.00-3.00) Absolute Monos (auto) 0.64 10^3/uL 10^3/uL (0.30-0.80) Absolute Eos (auto) 0.38 10^3/uL 10^3/uL (0.03-0.40) Absolute Basos (auto) 0.03 10^3/uL 10^3/uL (0.02-0.10) Absolute Nucleated RBC 0.00 10^3/uL 10^3/uL (0-0.01) Immature Gran % 0.3 % % (0.0-1.1) Immature Gran # 0.03 10^3/uL 10^3/uL (0.00-0.10) PT 13.4 SEC SEC (12.0-15.0) INR 1.00 (0.83-1.16) APTT 27.8 SEC SEC (23.0-38.0) Sodium 144 mEq/L mEq/L (135-145) Potassium 4.1 mEq/L mEq/L (3.3-5.0) Chloride 104 mEq/L mEq/L (97-110) Carbon Dioxide 28 mEq/l mEq/l (22-31) Anion Gap 12 mEq/L mEq/L (8-16) BUN 26 mg/dL H mg/dL (7-23) Creatinine 1.5 mg/dL H mg/dL (0.6-1.0) Estimated GFR 33 Glucose 103 mg/dL H mg/dL (70-100) Calcium 12.1 mg/dL H mg/dL (8.5-10.4) Phosphorus 3.2 mg/dL mg/dL (2.5-4.5) Troponin I < 0.012 ng/mL ng/mL (0.000-0.034) Medications Given: Discontinued Medications Labetalol HCl (Trandate Injection) 10 mg IVP EDNOW ONE Stop: 07/20/17 18:40 Last Admin: 07/20/17 19:24 Dose: 10 mg General Initial Vital Signs: Initial Vital Signs Temperature (C) 36.8 C 07/20/17 16:57 Heart Rate 87 07/20/17 16:57 Respiratory Rate 16 07/20/17 16:57 Blood Pressure 186/130 H 07/20/17 16:57 O2 Sat (%) 96 07/20/17 16:57 O2 Delivery Mode Nasal Cannula O2 (L/minute) 2 Allergies/Adverse Reactions: No Known Allergies Allergy (Unverified 01/01/17 16:36) Home Medications: Medication Instructions Recorded Cholecalciferol Vit D3 [Vitamin D3 2,000 units PO DAILY 01/03/17 (*)] Cyanocobalamin [Vitamin B12 (*)] 1,000 mcg PO DAILY 01/03/17 amLODIPine BESYLATE [Norvasc 10 mg 10 mg PO DAILY 01/03/17 (*)] Aspirin [Aspirin 81mg (*)] 81 mg PO DAILY #30 tab.chew 01/08/17 Atorvastatin Calcium [Lipitor 20 20 mg PO DAILY #30 tab 01/08/17 mg (*)] Citalopram Hydrobromide [celeXA 10 10 mg PO DAILY 07/21/17 MG] Losartan Potassium [Cozaar 50 mg 50 mg PO DAILY 07/21/17 (*)] Departure - Departure Disposition: [facility] Acute Clinical Impression: Head injury Qualifiers: Encounter type: initial encounter Qualified Code(s): S09.90XA - Unspecified injury of head, initial encounter Dementia Qualifiers: Dementia type: unspecified type Dementia behavioral disturbance: without behavioral disturbance Qualified Code(s): F03.90 - Unspecified dementia without behavioral disturbance Condition: Fair Report Scribed for: Alec Whitaker Report Scribed by: Sharron Lane Date of Report: 07/20/17 Time of Report: 17:09 Physician Review and Approval Statement: Portions of this note were transcribed by an ED scribe. I personally performed the history, physical exam, and medical decision making; and confirm the accuracy of the information in the transcribed note.
[2017-07-20 17:28] LABS: PLATELET COUNT 271 10^3/uL (150-400)
[2017-07-20 17:41] LABS: PROTIME(PATIENT) 13.4 SEC (12.0-15.0)
[2017-07-20] MEDS ORDERED: LABETALOL HCL 5 MG/ML 20 ML MDV IVP ONE (18:39)
[2017-07-20] MEDS ORDERED: hydrALAZINE 20 MG/ML VIAL IVP PRN (21:05)
[2017-07-20] MEDS ORDERED: ONDANSETRON 4 MG/2 ML VIAL IVP PRN (21:05)
[2017-07-20] MEDS ORDERED: ACETAMINOPHEN 325 MG TAB PO PRN (21:05)
--- NOTE | 2017-07-20 21:53 | GHP ---
[f rep st] HISTORY AND PHYSICAL DATE OF ADMISSION: 07/20/2017 CHIEF COMPLAINT: Head injury. HISTORY OF PRESENT ILLNESS: This is an 87-year-old female with history of dementia and hypertension who was brought to the emergency department by EMS after she was noted to have a head injury that hap pened during a mechanical fall. Per report, she walked into her kitchen this afternoon and slipped o n water. She usually uses a walker, but apparently this was not present when EMS arrived. All history was obtained via ER report. The patient is an unreliable historian due to her dementia. Upon arrival to the emergency department, her blood pressure was 200/120. She was given some IV lab etalol, which brought her blood pressure down. During the time of my exam, the patient denies any pain. Once again, she does not appear to be a rel iable historian. PAST MEDICAL HISTORY: 1. Ulcerated thoracic aortic ulcer. 2. Atherosclerosis. 3. Hypertension. 4. Diverticulitis. 5. Hyperlipidemia. 6. Restless legs syndrome. 7. Chronic low back pain. 8. History of tobacco abuse. 9. Thyroid nodule. 10. Liver cyst. 11. Pulmonary nodule. 12. Gastric ulcer. 13. Constipation. 14. Chronic kidney disease. 15. Primary hyperparathyroidism. 16. Kidney stones with history of lithotripsy. 17. Osteoporosis. 18. COPD. 19. Spinal stenosis. 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 PAST SURGICAL HISTORY: Unobtainable. HOME MEDICATIONS: Reviewed. Refer to to-BBB for details. ALLERGIES: No known drug allergies. SOCIAL HISTORY: Unobtainable. FAMILY HISTORY: Unobtainable. REVIEW OF SYSTEMS: Comprehensive 10-point review of systems was attempted but unobtainable due to th e patient's mental status. PHYSICAL EXAMINATION: VITAL SIGNS: Blood pressure 136/116, heart rate 80, respiratory rate 16, O2 s aturation 90% on room air. Temperature afebrile. GENERAL: No acute distress. HEENT: Head normoce phalic, with a scalp laceration. Eyes PERRLA. Mouth: Moist mucous membranes. HEART: S1-S2. No m urmurs, rubs, clicks, gallops. No JVD. No lower extremity edema. PULMONARY: Lungs are clear. No wheezes, rales, or rhonchi. ABDOMEN: Soft, nontender, nondistended. No guarding or rebound tendern ess. Normoactive bowel sounds. EXTREMITIES: No clubbing or cyanosis. NEURO: The patient does not follow commands. She moves all extremities. Face appears to be symmetric. She is alert and orient ed to person only. SKIN: Clear, no rashes. DIAGNOSTICS: WBC is 8.8, hemoglobin 15.1, hematocrit 45.7, platelets 271. Sodium 144, potassium 4.1 , chloride 104, BUN 26, creatinine 1.5, glucose 103, calcium 12.1. Head CT showed equivocal, small right frontal cortical gyral hemorrhage versus artifact, right pariet al scalp laceration. Cervical CT showed no acute post traumatic cervical abnormality. ASSESSMENT AND PLAN: This is an 87-year-old female who presented to the emergency department status post fall with: 1. Scalp laceration. 2. Plan: The wound was sutured in the emergency department. Suture removal should be done in 7 day s, on 07/27/2017. 3. Equivocal small right frontal cortical gyral hemorrhage versus artifact. Plan: The patient will have neuro checks while in the hospital. We will plan to repeat a head CT in the morning. I discussed this finding with Dr. Whitaker, who spoke with Dr. Winters, who was on-call for neurosurgery, who apparently reviewed the images and thought this was likely artifact. 1. Uncontrolled hypertension/hypertensive urgency. Plan: The patient received IV labetalol in the emergency department. Will continue with her home me dications and treat with p.r.n. hydralazine to target blood pressure of a systolic less than 180 and diastolic less than 100. 1. Hypercalcemia, possibly contributing to her mental status, with history of hyperparathyroidism. 2. Plan: I will defer treatment at this time, but will ask my colleagues to consider bisphosphonate treatment in the morning once we have more information regarding her hyperparathyroidism. /[id number]/MODL
[2017-07-20] MEDS: amLODIPine BESYLATE 5 MG TAB PO SCH (22:48)
[2017-07-21 05:17] LABS: PLATELET COUNT 240 10^3/uL (150-400)
--- NOTE | 2017-07-21 07:39 | PDMN ---
Medical Necessity Medical necessity: Pt meets INPT criteria per MD and MCG M-197 Hypertension ( uncontrolled hypertension/hypertensive urgency: BP 221/127, 184/106, requiring IV Labetalol, Apresoline; s/p fall with scalp laceration and equivocal small R frontal cortical gyral hemorrhage vs artifact; hypercalcemia with hx hyperparathyroidism; est. LOS >2 MN).
[2017-07-21] MEDS ORDERED: ENOXAPARIN 30 MG/0.3 ML SYR SC SCH (09:00)
[2017-07-21] MEDS: amLODIPine BESYLATE 5 MG TAB PO SCH (09:50)
--- NOTE | 2017-07-21 13:17 | HOSPPROG ---
Hospitalist Progress Note Assessment/Plan: 87y female with fall and confusion. First encounter, chart reviewed. D/W RN. #Scalp lac -stable #Possible small right frontal hemmorrhage -stable #HTN urgency -resolved #Hypercalcemia -needs further evaluation -hx of hyperparathyroidsm -unclear history -will try to obtain more history -consider treatment once info obtained #Dispo -unclear -unable to manage at home -rec SNF -D/W CM Subjective: Confused. No complaints. Objective: Vital Signs Temp Pulse Resp BP Pulse Ox 36.9 C 68 16 156/87 H 91 L 07/21/17 11:22 07/21/17 11:22 07/21/17 11:22 07/21/17 11:22 07/21/17 11:22 Laboratory Results 07/21/17 04:44 07/21/17 04:44 07/20/17 07/21/17 07/22/17 05:59 05:59 05:59 Intake Total 300 Output Total 400 Balance -100 PT 13.4 SEC (12.0-15.0) 07/20/17 17:12 INR 1.00 (0.83-1.16) 07/20/17 17:12 - Physical Exam Constitutional: appears nourished, not in pain, cachectic Eyes: PERRL, anicteric sclera Ears, Nose, Mouth, Throat: moist mucous membranes, hearing normal, hard of hearing Cardiovascular: No JVD, No tachycardia, No edema Respiratory: no respiratory distress, no rales or rhonchi, clear to auscultation Gastrointestinal: normoactive bowel sounds, No tenderness, No ascites Skin: warm, normal color, No mottled Musculoskeletal: normal joint ROM, no joint effusions, generalized weakness Neurologic: No AAOx3 Psychiatric: not anxious, poor insight, poor judgement, poor memory, No thought process linear ICD10 Worksheet Patient Problems: Problems Problem Status Onset Syncope Acute Troponin level elevated Acute Palliative care encounter Acute Head injury Acute Dementia Acute
--- NOTE | 2017-07-21 16:48 | ASMTCMCOM ---
CM Note CM Note Notes: Attempted to call patient's via phone, no answer. Spoke with daughter, Roseanne #[phone] and also son #[phone] re: discharge plan of care. Patient currently lives at home with and son, Darshan (MDPOA). Daughter states there is a STREAM CONTROL OFFICER through [facility] that comes in once/week, family open to increasing that care. D/W PT, patient needs SNF or 24/7 care at this time. CM explained this to both the son and daughter who are agreeable to SNF for the time being until they can coordinate 24/7 supervision. Patient has [facility] and was discharged to [facility] in January. I have sent a referral to [facility] and also sent information to Johanna at [facility] #[phone]. [facility] will review patient's info and follow-up with CM. CM reiterated to [facility] that family hopes patient can return to [facility]. PASRR completed by Social Work. Current Plan: Likely SNF - [facility] pending [facility]'s authorization. Date Signed: 07/21/2017 04:47 PM Electronically Signed By:Ruthie Maddox RN
[2017-07-22] MEDS ORDERED: PNEUMOC 13-VAL CONJ-DIP CRM/PF 0.5 ML SYR IM ONE (07:44)
[2017-07-22] MEDS ORDERED: ATORVASTATIN CALCIUM 20 MG TAB PO SCH (09:00)
[2017-07-22] MEDS ORDERED: NON-FORMULARY NEW DRUG (Citalopram Hydrobromide [Celexa 10 Mg] 10 MG) PO SCH (09:00)
[2017-07-22] MEDS ORDERED: CYANO/VITAMIN B12 1000 MCG TAB PO SCH (09:00)
[2017-07-22] MEDS ORDERED: ASPIRIN 81 MG CHEWABLE TAB PO SCH (09:00)
[2017-07-22] MEDS ORDERED: CITALOPRAM 20 MG TAB PO SCH (09:00)
[2017-07-22] MEDS ORDERED: CHOLECALCIFEROL VIT D3 1,000 UNITS TAB PO SCH (09:00)
--- NOTE | 2017-07-22 11:27 | HOSPPROG ---
Hospitalist Progress Note Assessment/Plan: 87y female with fall and confusion. First encounter, chart reviewed. D/W RN. #Scalp laceration -stable -needs suture removal on July 27 # Initial concern for a Possible small right frontal hemorrhage -noted on initial CT of the head -repeat CT of head stable # gait instability w falls -PT and OT recommending SNF #HTN urgency -resolved #Hypercalcemia -reviewed her past medical history. She has had hypercalcemia since 2009 -has a history hyperparathyroidism * history of dementia -would benefit from a memory care unit #Devin Reviewed the patient's care with case management. She reviewed with patient's insurance, [employer]. They have declined a longterm facility. Case management to follow up with the family. She will likely need 24 care Subjective: Erica said she is very hungry. Objective: Vital Signs Temp Pulse Resp BP Pulse Ox 36.8 C 88 16 139/97 H 94 07/22/17 07:36 07/22/17 07:36 07/22/17 07:36 07/22/17 07:48 07/22/17 07:36 Laboratory Results 07/21/17 04:44 07/21/17 04:44 07/21/17 07/22/17 07/23/17 05:59 05:59 05:59 Intake Total 300 Output Total 400 400 Balance -100 -400 PT 13.4 SEC (12.0-15.0) 07/20/17 17:12 INR 1.00 (0.83-1.16) 07/20/17 17:12 - Physical Exam Constitutional: not in pain, chronically ill appearing, other (thin) Ears, Nose, Mouth, Throat: hearing normal Cardiovascular: regular rate and rhythym Respiratory: no respiratory distress Skin: warm, other (top of scalp with some dried blood, jonathan in place) Neurologic: other (alert, knows where she is and why she is here) Psychiatric: interacting appropriately ICD10 Worksheet Patient Problems: Problems Problem Status Onset Dementia Acute Head injury Acute Palliative care encounter Acute Syncope Acute Troponin level elevated Acute
[2017-07-22 11:45] VITALS: BP 146/95
--- NOTE | 2017-07-22 13:59 | ASMTCMCOM ---
CM Note CM Note Notes: [facility] has denied pt for SNF admission. Updated pt son Darshan [phone] who will plan on taking pt home with 24 hour supervision, [facility] and [facility] when medically stable. Date Signed: 07/22/2017 01:59 PM Electronically Signed By:CHARAN Morales
--- NOTE | 2017-07-22 14:57 | PDIAF ---
- Diagnosis Diagnosis: scalp laceration, gait instability w falls, dementia, hypercalcemia Code Status: Full Code - Medication Management Discharge Medications: Medications to Continue on Transfer Cholecalciferol Vit D3 [Vitamin D3 (*)] 2,000 units PO DAILY 01/03/17 [Last Taken Unknown] Cyanocobalamin [Vitamin B12 (*)] 1,000 mcg PO DAILY 01/03/17 [Last Taken Unknown ] amLODIPine BESYLATE [Norvasc 10 mg (*)] 10 mg PO DAILY 01/03/17 [Last Taken Unknown] Aspirin [Aspirin 81mg (*)] 81 mg PO DAILY #30 tab.chew 01/08/17 [Last Taken Unknown] Atorvastatin Calcium [Lipitor 20 mg (*)] 20 mg PO DAILY #30 tab 01/08/17 [Last Taken Unknown] Citalopram Hydrobromide [celeXA 10 MG] 10 mg PO DAILY 07/21/17 [Last Taken Unknown] Losartan Potassium [Cozaar 50 mg (*)] 50 mg PO DAILY 07/21/17 [Last Taken Unknown] Acetaminophen [Tylenol 325mg (*)] 650 mg PO Q6 PRN tab 07/22/17 [Last Taken Unknown] Discharge Medications: Refer to the Discharge Home Medication list for PRN reason. - Orders Services needed: Home Care, Physical Therapy, Occupational Therapy Home Care Face to Face: I certify that this patient was under my care and that I had the required [id number] encounter meeting the encounter requirements on the discharge day. My findings support the fact that the patient is homebound as defined in Home Care Face to Face Continued: CMS Chapter 7 Medicare Benefits Manual 30.1.1 , The condition of the patient is such that there exists a normal inability to leave home and consequently, leaving home would require a considerable and taxing effort. Diet Recommendation: no restrictions on diet Diet Texture: Regular Texture Diet Additional Instructions: Return to the emergency department for suture removal in seven days (07/27/17). Use of walker at all times when up. Recommending 24 hour supervision. Talk with [facility] to see if they can help assist with placement or increased care. - Follow Up Care Current Providers and Referrals: NONE *PRIMARY CARE P,. [Primary Care Provider] - As per Instructions
--- NOTE | 2017-07-22 15:27 | GDS ---
[f rep st] DISCHARGE SUMMARY DISCHARGE DIAGNOSES: 1. Scalp laceration. 2. Initial concern for a possible small right frontal hemorrhage. 3. Gait instability, falls. 4. Hypertensive urgency. 5. Hypercalcemia. 6. History of dementia. HISTORY OF PRESENT ILLNESS: Briefly, the patient is an 87-year-old female with a history of dementia. She was brought to the emergency department by EMS after she was noted to have a head injury that happened during a mechanical fall. She walked in her kitchen and slipped on water. She usually uses a walker, but this was not present when EMS arrived. On admission, her blood pressure is 201/120. She was given IV labetalol. Her scalp was sutured in the emergency department. Recommendations were for her to go to a group home facility, but her insurance at this time is not covering this. Case Management has spoke with them. The plan is for her to go home. Recommendation is to get more care and 24 hour supervision. The patient's son is working on this. HOSPITAL COURSE: 1. Scalp laceration. This is stable. She needs suture removal on July 27. 2. Initial concern for a small right frontal hemorrhage. This was noted on her initial CT scan of the head. This was reviewed by Neurosurgery, who did not think this was actual bleed. She had a repeat CT of the head next day. This was noted to be stable without a bleed. 3. Gait instability with falls. Recommending a walker. PT and OT are recommending a group home facility. We will order home care PT and OT. 4. Hypertensive urgency, resolved. 5. Hypercalcemia. I have reviewed her past medical history. She has had hypercalcemia since 2009. She also has history of hyperparathyroidism. 6. History of dementia. She would benefit from memory care unit. DISCHARGE CONDITION: Stable. Blood pressure is 146/95, heart rate is 75, respiratory rate is 16, O2 saturation on room air 95%, temperature is 36.8 Celsius. DISCHARGE MEDICATIONS: Please see the EMR. DISCHARGE INSTRUCTIONS: 1. To return to the ER and get her sutures removed on July 27. 2. Use of walker at all times. 3. Recommending 24 hour supervision. Greater than 30 minutes discharging and coordinating the patient's care. Copy requested to: Primary care physician /[id number]/MODL MTDD
--- NOTE | 2017-07-23 13:58 | ASDISCHSUM ---
Discharge Information Plan Status:Home with Home Health Medically Cleared to Leave: Discharge Date:07/22/2017 05:33 PM CM D/C Disposition:Home Health Service ADT D/C Disposition:Home Health Service Projected Discharge Date:07/22/2017 11:00 AM Transportation at D/C:Family Discharge Delay Reason: Follow-Up Date:07/22/2017 11:00 AM Discharge Slot: Final Diagnosis: Placement Information Referral Type:*Home Health Care Services Referral ID:[id number] Provider Name:[facility] Address 1:[address] [place] [address] Address 2: City:[place] Selection Factors: State:[place] Referral Type:*Alf/SNF Referral ID:[id number] Provider Name: Address 1: Phone Number: Address 2: Fax Number: City: Selection Factors: State: Patient Contact Information Contact Name:RYLANARLETHANAM Relationship: Address:[address] Work Phone: City:[place] Alternate Phone: State/Zip Code:[place] [address] Email: Financial Information Financial Class:Medicare Advantage Plans Primary Plan Desc:[facility] MEDICARE ADVANTAGE OUTPAT Primary Plan Number:[id number] Secondary Plan Desc: Secondary Plan Number: Assessment Information [facility] Progress Note CM Note CM Note Notes: Attempted to call patient's via phone, no answer. Spoke with daughter, Roseanne #[phone] and also son #[phone] re: discharge plan of care. Patient currently lives at home with and son, Darshan ([facility]). Daughter states there is a SECURITY SERGEANT through [facility] that comes in once/week, family open to increasing that care. D/W PT, patient needs SNF or 24/7 care at this time. GIA explained this to both the son and daughter who are agreeable to SNF for the time being until they can coordinate 24/7 supervision. Patient has [facility] and was discharged to [facility] in January. I have sent a referral to of [facility] and also sent information to Johanna at [facility] #[phone]. [facility] will review patient's info and follow-up with CM. GIA reiterated to [facility] that family hopes patient can return to [facility]. PASRR completed by Social Work. Current Plan: Likely SNF - of [facility] pending [facility] authorization. Date Signed: 07/21/2017 04:47 PM Electronically Signed By:Ruthie Maddox RN [facility] CM Progress Note CM Note CM Note Notes: [facility] has denied pt for SNF admission. Updated pt son Darshan [phone] who will plan on taking pt home with 24 hour supervision, [facility] and [facility] when medically stable. Date Signed: 07/22/2017 01:59 PM Electronically Signed By:CHARAN Morales Intervention Information
== END 2017-07-22 17:33 | disposition home health service (06) | DRG 914 ==
LOC: EDUNIT# → OBSVTOIN 19:31 → F3N 22:28
PROVIDERS: ADMIT Family Medicine; ATTEND Family Medicine
PROC: 0HQ0XZZ Repair Scalp Skin, External Approach (ICD-10-PCS; principal; 2017-07-20)
DX: S09.8XXA Other specified injuries of head, initial encounter (principal); S01.01XA Laceration without foreign body of scalp, initial encounter; W01.0XXA Fall on same level from slipping, tripping and stumbling without subsequent striking against object, initial encounter; Y92.000 Kitchen of unspecified non-institutional (private) residence as the place of occurrence of the external cause; I16.0 Hypertensive urgency; F03.90 Unspecified dementia, unspecified severity, without behavioral disturbance, psychotic disturbance, mood disturbance, and anxiety; R26.89 Other abnormalities of gait and mobility; I12.9 Hypertensive chronic kidney disease with stage 1 through stage 4 chronic kidney disease, or unspecified chronic kidney disease; N18.9 Chronic kidney disease, unspecified; E78.5 Hyperlipidemia, unspecified; E21.0 Primary hyperparathyroidism; J44.9 Chronic obstructive pulmonary disease, unspecified; Z87.442 Personal history of urinary calculi; Z87.11 Personal history of peptic ulcer disease
CPT/HCPCS: 96374; 97116-GP; 97161-GP; 97166-GO; 97530-GO; 97535-GO; G0009; J0360